=== PATIENT | female | born 1965 | race Caucasian/White ===

== ENCOUNTER 2022-02-25 12:36 | Outpatient (REF) | payer OTHER, SELFPAY ==
[2022-02-25 13:58] LABS: MANUAL DIFF FLAG NO
[2022-02-25 14:10] LABS: Basophils Absolute Auto 0.1 X10*3/uL (0.0-0.2); Basophils Percent Auto 0.9 % (0-2); Eosinophils Absolute Auto 0.5 X10*3/uL (0.0-0.4); Eosinophils Percent Auto 5.6 % (0-4); Hematocrit 40.2 % (37.0-47.0); Hemoglobin 12.5 g/dl (12.0-16.0); Imm Gran Abs Auto 0.03 X10*3/uL (0.00-0.03); Imm Gran Pct Auto 0.3 % (0.0-0.4); Lymphocytes Absolute Auto 3.1 X10*3/uL (1.2-4.9); Lymphocytes Percent Auto 32.8 % (20-40); Mean Corpuscular HGB Conc 31.1 g/dl (31.0-35.0); Mean Corpuscular Hemoglobin 29.9 pg (27.0-33.0); Mean Corpuscular Volume 96.2 fL (80.0-98.0); Mean Platelet Volume 11.6 fL (9.4-12.3); Monocytes Absolute Auto 0.9 X10*3/uL (0.1-1.2); Monocytes Percent Auto 9.2 % (2-11); Neutrophils Absolute Auto 4.8 x10*3/uL (2.0-8.3); Neutrophils Percent Auto 51.2 % (45-73); Platelet Count 257 X10*3/uL (160-400); Red Blood Count 4.18 X10*6/uL (4.20-5.50); Red Cell Distribution Width 13.7 % (11.0-16.0); White Blood Count 9.4 X10*3/uL (4.8-10.8)
[2022-02-25 15:45] LABS: Alanine Aminotransferase 36 U/L (0-31); Albumin Level 3.7 g/dL (3.5-5.0); Alkaline Phosphatase 97 U/L (39-117); Anion Gap 12 (12-20); Aspartate Amino Transferase 46 U/L (5-31); Bilirubin Total 0.5 mg/dL (0.0-1.0); Blood Urea Nitrogen 15 mg/dL (9-16); Calcium 8.9 mg/dL (8.4-10.2); Carbon Dioxide 29 mmol/L (22-29); Chloride 105 mmol/L (96-108); Cholesterol 145 mg/dL; Estimated Glomerular Filt Rate 47; Free T4 (Free Thyroxine) 1.17 ng/dL (0.71-1.85); Glucose Fasting 107 mg/dL (60-99); HDL Cholesterol 32 mg/dL; LDL Cholesterol Calculated 93 mg/dl; Potassium 4.4 mmol/L (3.3-5.1); Sodium 142 mmol/L (135-145); Thyroid Stimulating Hormone 1.77 uIU/mL (0.32-4.0); Total Protein 7.6 g/dL (6.5-8.0); Triglycerides 103 mg/dL
[2022-02-27 07:59] LABS: Triiodothyronine T3 Total 143 ng/dL (76-181)
== END 2022-02-25 12:37 | disposition home or self-care (01) ==
LOC: HO.WFDLDS 12:36
PROVIDERS: Visit Provider Family Medicine
DX: Z00.00 Encounter for general adult medical examination without abnormal findings (principal); E03.9 Hypothyroidism, unspecified
CPT/HCPCS: 36415; 80053; 80061; 84439; 84443; 84480; 85025

== ENCOUNTER 2022-06-02 08:00 | Outpatient (RCR) | payer OTHER, SELFPAY ==
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
--- NOTE | 2022-06-02 09:07 | MHC.PT.OD ---
[facility] [place] Office [place] Office [place] Office [address] Iveth Sheikh [address] [phone] F: [phone] F: [phone] F: [phone] F: [phone] Physical Therapy Daily Note Diagnosis: PAIN IN R SHOULDER Date of Surgery: NA Date of Evaluation: 05/14/22 Date of Treatment: 06/02/22 Treatments to Date: 4 Cancellations to Date: No Shows to Date: Authorized Visits: Insurance End Date: Precautions/ Contraindications:NONE SPECIFIED Subjective: Expresses her shoulder is feeling lousy today. Pain Score and Location: 8 R SHOULDER Objective Flowsheet: Tests & Measures PT EVAL Exercises UBE ELSA SEATED FITO FOR SHLDER FLEX X 5MIN, Supine AAROM flexion with use of cane x 10 sec hold x 5R, AAROM cane scaption in supine x 10 sec x 5R, review of shoulder extension with RTB issued at time of last session. SHOULD BENEFIT FROM ST WORK R SHLDER/UPPER ARM, POSSIBLE KT (Pt WITH EXEMA ON HANDS AND R FOREARM (Pt REPORTS BACK ALSO, BUT REPORTS NO ISSUE WITH TAPE/BANDAIDS) SPOKE WITH [facility] ([facility]) RE Pt. SHE IS TO PUT IN A REFFERRAL TO THE [facility] IN [facility] (GAVE Pt NUMBER TO CALL IF THEY DONT REACH OUT TO HER) Modalities SEATED MH X 10 MIN R SHLDER AFTER FITO Assessment: Pt expressing she was feeling dizzy after rising from supine on mat for shoulder AAROM, assessment BP seated L UE 80/60mmHg, HR 48 bpm, Sp02 96%. Therapist inquired with patient, was scheduled to see Emerald Isreal on 06/04/22. Therapist encouraged patient to be seen in the walk-in office. A repeat blood pressure taken, L UE manually 80/55mmHg, HR fluctuating between 45-54 on pulse ox, Sp02 96%. Pt encouraged to increase her water intake and drank two cups of water in office. Pt states she was asymptomatic after sitting upright for a few minutes. Pt expressing she took all her BP meds this morning. Pt (-) for diaphoresis, chest pain, radiating arm, sx, denies nausea. Pt states she did not eat breakfast this am. Pt agreeable to being seen with walk-in provider/PCP upon completion of this visit. PT Plan: AAROM>AROM R SHLDER, RC/SCAP WORK, ST WORK PRN Short Term Goals: 1. INCREASED AWARENESS POSTURE AND SHLDER CARE 2. IMPROVED SLEEP Grooving Lathe Tender Goals: 1. INCREASED R SHLDER ROM AT LEAST 20 DEGREES FOR SHLDER FLEX/ABD/ER 2. DECREASED R SHLDER PAIN AT LEAST 50% WITH ADLS 3. I HEP WITH DC EX PLAN Electronically signed by: Ruth Clements, PT, DPT
--- NOTE | 2022-06-02 09:10 | MHC.PT.OD ---
[facility] [place] Office [place] Office [place] [address] Iveth Sheikh [address] [phone] F: [phone] F: [phone] F: [phone] F: [phone] Physical Therapy Daily Note Diagnosis: PAIN IN R SHOULDER Date of Surgery: NA Date of Evaluation: 05/14/22 Date of Treatment: 06/02/22 Treatments to Date: 4 Cancellations to Date: No Shows to Date: Authorized Visits: Insurance End Date: Precautions/ Contraindications:NONE SPECIFIED Subjective: Expresses her shoulder is feeling lousy today. Pain Score and Location: 8 R SHOULDER Objective Flowsheet: Tests & Measures PT EVAL Exercises UBE ELSA SEATED FITO FOR SHLDER FLEX X 5MIN, Supine AAROM flexion with use of cane x 10 sec hold x 5R, AAROM cane scaption in supine x 10 sec x 5R, review of shoulder extension with RTB issued at time of last session. SHOULD BENEFIT FROM ST WORK R SHLDER/UPPER ARM, POSSIBLE KT (Pt WITH EXEMA ON HANDS AND R FOREARM (Pt REPORTS BACK ALSO, BUT REPORTS NO ISSUE WITH TAPE/BANDAIDS) Therapist inquired re: follow up with Tonia Paulino number for counselor issued last session; pt states she lost the phone number- therapist consulted with Tonia Paulino community navigation wrapper caser to obtain number and reissued to patient. Modalities SEATED MH X 10 MIN R SHLDER AFTER FITO Assessment: Pt expressing she was feeling dizzy after rising from supine on mat for shoulder AAROM, assessment BP seated L UE 80/60mmHg, HR 48 bpm, Sp02 96%. Therapist inquired with patient, was scheduled to see Emerald Bach on 06/04/22. Therapist encouraged patient to be seen in the walk-in office. A repeat blood pressure taken, L UE manually 80/55mmHg, HR fluctuating between 45-54 on pulse ox, Sp02 96%. Pt encouraged to increase her water intake and drank two cups of water in office. Pt states she was asymptomatic after sitting upright for a few minutes. HR remains low in the mid 40s. Pt expressing she took all her BP meds this morning. Pt (-) for diaphoresis, chest pain, radiating arm, sx, denies nausea. Pt states she did not eat breakfast this am. Pt agreeable to being seen with walk-in provider/PCP upon completion of this visit. PT Plan: AAROM>AROM R SHLDER, RC/SCAP WORK, ST WORK PRN Short Term Goals: 1. INCREASED AWARENESS POSTURE AND SHLDER CARE 2. IMPROVED SLEEP [facility] Goals: 1. INCREASED R SHLDER ROM AT LEAST 20 DEGREES FOR SHLDER FLEX/ABD/ER 2. DECREASED R SHLDER PAIN AT LEAST 50% WITH ADLS 3. I HEP WITH DC EX PLAN Electronically signed by: Ruth Clements, PT, DPT
--- NOTE | 2022-09-12 14:46 | MHC.PT.DC ---
[facility] [place] Office [place] Office [place] Office [address] Iveth Sheikh [address] [phone] F: [phone] F: [phone] F: [phone] F: [phone] Physical Therapy Discharge Report Diagnosis: PAIN IN R SHOULDER Date of Surgery: NA Date of Evaluation: 05/14/22 Date of Discharge: 09/12/22 Treatments to Date: 4 Cancellations to Date: No Shows to Date: Discharge Status: Patient Elected to Stop Discharge Summary: Pt SEEN FOR INIT EVAL AND 3 VISITS. PER ASSESSMENT AT LAST SESSION ON 06/02/22 BY JOSHUA GIMENEZ PT, DPT Pt expressing she was feeling dizzy after rising from supine on mat for shoulder AAROM, assessment BP seated L UE 80/60mmHg, HR 48 bpm, Sp02 96%. Therapist inquired with patient, was scheduled to see Emerald Bach on 06/04/22. Therapist encouraged patient to be seen in the walk-in office. A repeat blood pressure taken, L UE manually 80/55mmHg, HR fluctuating between 45-54 on pulse ox, Sp02 96%. Pt encouraged to increase her water intake and drank two cups of water in office. Pt states she was asymptomatic after sitting upright for a few minutes. HR remains low in the mid 40s. Pt expressing she took all her BP meds this morning. Pt (-) for diaphoresis, chest pain, radiating arm, sx, denies nausea. Pt states she did not eat breakfast this am. Pt agreeable to being seen with walk-in provider/PCP upon completion of this visit. Pt THEN CANCELLED NEXT SESSION Electronically signed by: BART GREENBERG PT Please sign and return to therapist. Thank you for your referral.
== END 2022-09-12 14:47 | disposition home or self-care (01) ==
LOC: HO.PTWFD 08:00
PROVIDERS: PCP Nurse Practitioner Family; Visit Provider Nurse Practitioner Family
DX: M25.511 Pain in right shoulder (principal)
CPT/HCPCS: 97110; 97162; 97535

== ENCOUNTER → 2022-06-20 08:03 | Outpatient (BNVA) | payer OTHER, SELFPAY | PROVIDERS: PCP Nurse Practitioner Family; Visit Provider Internal Medicine Endocrinology, Diabetes & Metabolism | DX: E05.90 Thyrotoxicosis, unspecified without thyrotoxic crisis or storm (principal) | CPT/HCPCS: 99202 ==

== ENCOUNTER 2022-06-20 09:15 | Outpatient (REF) | payer OTHER, SELFPAY ==
[2022-06-20 10:58] LABS: MANUAL DIFF FLAG NO
[2022-06-20 11:07] LABS: Basophils Absolute Auto 0.1 X10*3/uL (0.0-0.2); Basophils Percent Auto 1.2 % (0-2); Eosinophils Absolute Auto 0.5 X10*3/uL (0.0-0.4); Eosinophils Percent Auto 6.6 % (0-4); Hematocrit 37.1 % (37.0-47.0); Hemoglobin 11.5 g/dl (12.0-16.0); Imm Gran Abs Auto 0.02 X10*3/uL (0.00-0.03); Imm Gran Pct Auto 0.2 % (0.0-0.4); Lymphocytes Absolute Auto 2.9 X10*3/uL (1.2-4.9); Lymphocytes Percent Auto 34.9 % (20-40); Mean Corpuscular Volume 96.9 fL (80.0-98.0); Mean Platelet Volume 12.3 fL (9.4-12.3); Monocytes Absolute Auto 0.9 X10*3/uL (0.1-1.2); Monocytes Percent Auto 10.6 % (2-11); Neutrophils Absolute Auto 3.8 x10*3/uL (2.0-8.3); Neutrophils Percent Auto 46.5 % (45-73); Platelet Count 265 X10*3/uL (160-400); Red Blood Count 3.83 X10*6/uL (4.20-5.50); Red Cell Distribution Width 14.6 % (11.0-16.0); White Blood Count 8.2 X10*3/uL (4.8-10.8)
[2022-06-20 11:25] LABS: Alanine Aminotransferase 26 U/L (0-31); Albumin Level 3.4 g/dL (3.5-5.0); Alkaline Phosphatase 105 U/L (39-117); Aspartate Amino Transferase 29 U/L (5-31); Bilirubin Direct 0.2 mg/dL (0.0-0.5); Bilirubin Total 0.4 mg/dL (0.0-1.0); Total Protein 6.8 g/dL (6.5-8.0)
[2022-06-20 11:41] LABS: Free T4 (Free Thyroxine) 0.87 ng/dL (0.71-1.85); Thyroid Stimulating Hormone 9.34 uIU/mL (0.32-4.0)
[2022-06-25 14:53] LABS: Thyrotropin Receptor Antibody <1.00 IU/L (<=2.00)
== END 2022-06-20 09:16 | disposition home or self-care (01) ==
LOC: HO.10HDL 09:15
PROVIDERS: Visit Provider Internal Medicine Endocrinology, Diabetes & Metabolism
DX: E05.90 Thyrotoxicosis, unspecified without thyrotoxic crisis or storm (principal)
CPT/HCPCS: 36415; 80076; 83520; 84439; 84443; 85025

== ENCOUNTER 2022-08-13 12:26 | Outpatient (REF) | payer OTHER, SELFPAY | END 2022-08-13 12:27 | disposition home or self-care (01) | LOC: HO.HOSX 12:26 | PROVIDERS: Visit Provider Physician Assistant | DX: Z13.89 Encounter for screening for other disorder (principal) ==

== ENCOUNTER 2022-09-11 10:04 | Outpatient (AMB) | payer OTHER, SELFPAY ==
[2022-09-11 10:13] VITALS: BP 128/66; PULSE 77; RESP 12; TEMP 36.4; O2SAT 98; BMI 43.0
--- NOTE | 2022-09-11 10:13 | MHC.PC.OV ---
Vital Signs 09/11/22 10:13 Height 5 ft 6 in Weight 266 lb 4 oz BMI 43.0 BP 128/66 Blood Pressure Location Lt brachial Position Sitting Respiration 12 Pulse 77 Pulse Source Pulse Oximeter Temp 97.5 F Temp Source Temporal Artery Scan Pulse Oximetry (%) 98 Oxygen Delivery Method Room Air Intake Visit Reasons: 2 mos R shoulder, hyperthyroidism Intake Note: Patient states that she has been feeling extra tired lately and states he feels like she has to force herself to get up. Patient states that her right shoulder has been hurting a little bit. Patient needs a refill on her Ibuprofen. Legal Administrative Assistant Required: No Accompanied by: Self / Same As Patient Allergies acetaminophen [From Tylenol] Allergy (Mild, Verified 09/11/22 10:32) Hives codeine Allergy (Unknown, Verified 09/11/22 10:32) hives Medication List - Last Reconciled 09/11/22 by Jaime Bach CNP betamethasone valerate 0.1% 1 appl topical BID PRN hydrochlorothiazide 25 mg PO DAILY 30 days ibuprofen 800 mg PO Q12H PRN lisinopril 40 mg PO DAILY 90 days methimazole 5 mg PO DAILY Tobacco use date assessed: 06/04/22 Dental Screening Dental Screen Date: 09/11/22 Did you have a dental visit in the last 12 months?: No Did you have a dental problem in the last 6 months where you did not have access to dental care?: No HPI HPI Comments History of Present Illness Details 57-year-old female presents for hypothyroidism, right shoulder pain, and right leg/knee pain follow-up She notes she has been taking her medications as prescribed She reports chronic fatigue which is worsening. She also reports chronic right shoulder and right knee pain X-ray were ordered for chronic right shoulder and right leg/knee pain on her last visit. She was also referred to Orthopedics She has not gotten x-ray done She has a follow-up appointment with Orthopedics on 09/18/2022 She has not had thyroid function studies done as ordered by endocrinology. She has a follow-up appointment with Endocrinology on 09/15/2022 She notes she had a successful myomectomy last month Patient states that she has been feeling extra tired lately and states he feels like she has to force herself to get up. Patient states that her right shoulder has been hurting a little bit. Patient needs a refill on her Ibuprofen. [facility] Medical History (Updated 09/11/22 @ 10:28 by Marilyn Frazier MA) No pertinent past medical history Surgical History History of back surgery Hx of breast surgery Hx of knee surgery Hx of oral surgery Family History Mother Lung cancer Colon cancer High blood pressure Social History Housing: Apartment Alcohol intake: never Patient Tobacco Use Status: Former Tobacco user Tobacco use type: Cigarette e-Cigarette/Vaping Use: Currently Using service: No Current occupational status: disabled Cognitive needs: No Hearing needs: No Vision needs: Yes Questionnaire Thrive Questionnaire Date Thrive assessed: 04/03/22 RANJIT-7 AMB Questionnaire RANJIT-7 Date RANJIT - 7 assessed: 06/04/22 Source: Developed by Drs. Pan Bunch, Meron Kennedy, Aldair Alston and colleagues, with an educational tamera from [employer]. Review of Systems Const Details: Const Denies chills, Denies fatigue, Denies fever(s), Denies headache(s) and Denies weakness ENT Denies change in vision, Denies dizziness, Denies headache(s), Denies hearing loss, Denies nasal congestion, Denies sinus pain, Denies sinus pressure and Denies sore throat Resp Denies cough, Denies dyspnea, Denies wheezing and Denies other (shortness of breath) Cardio Denies chest pain, Denies lightheadedness, Denies dyspnea and Denies other (palpitations) Neuro Denies dizziness, Denies headache(s), Denies numbness, Denies tingling and Denies weakness Musc Reports as per HPI Psych Denies anxiety, Denies depression, Denies memory?loss Endo Denies fatigue Aller/Immun Denies wheezing Physical exam (Primary Care) Tobacco/Smoking Status: Tobacco use Status Tobacco use date assessed 06/04/22 07/07/22 12:27 Patient Tobacco Use Status Current everyday Tobacco 07/07/22 12:27 Tobacco use type Cigarette 07/07/22 12:27 e-Cigarette/Vaping Use Currently Using 07/07/22 12:27 Thrive Assessment: Date of Thrive Assessment Date Thrive assessed 04/03/22 07/07/22 12:27 Const Other: Const General: well developed; No acute distress Nutritional Appearance: well nourished Orientation/consciousness: patient oriented x3 HEENT Head: Yes normocephalic and Yes atraumatic Eyes General: appearance normal, both eyes and all related structures Pupils: Equal, round and reactive pupils present EOM: EOMs intact bilaterally Resp Effort & Inspection: normal respiratory effort Auscultation: clear to auscultation bilaterally Cardio Rate: regular rate Rhythm: regular rhythm Heart sounds: S1 normal heart sound present, S2 normal heart sound present, no gallops, no murmurs and no rubs Bruits: no abdominal aortic bruits and no carotid bruits Back/Spine/Pelvis Back: no CVA tenderness Cervical Spine: cervical ROM normal and No Cervical spine tenderness Thoracic/Lumbar Spine: thoraco-lumbar ROM normal, No pain with thoraco-lumbar ROM, No thoracic spinal tenderness and No lumbar spinal tenderness Extrem General: Yes normal to inspection, No edema and No calf tenderness Limited range of motion of the right shoulder Neuro General: patient oriented x3 and gait normal, no focal neuro deficit Cranial nerves: Yes Equal, round and reactive pupils present Psych Affect: normal affect Assessment and Plan Assessment & Plan (1) Fatigue: Code(s): R53.83 - Other fatigue Plan: She reports chronic fatigue which is worsening May be related to anemia, thyroid disease, or vitamin deficiency CBC, CMP, and vitamin-D ordered. Encouraged to get blood work done Encouraged to get pending labs, including thyroid function studies blood work done as ordered by endocrinology Follow-up with worsening or new symptoms Verbalized understanding and agreed with treatment plan. (2) Right shoulder pain: Code(s): M25.511 - Pain in right shoulder Qualifiers: Chronicity: chronic Qualified Code(s): M25.511 - Pain in right shoulder; G89.29 - Other chronic pain Plan: She also reports chronic right shoulder and right knee pain Continue to take ibuprofen as prescribed Warm/cool compresses encouraged Encouraged to get pending x-ray done Follow-up with Ortho as scheduled Return with worsening or new symptoms Verbalized understanding and agreed with treatment plan. (3) Right knee pain: Code(s): M25.561 - Pain in right knee Qualifiers: Chronicity: chronic Qualified Code(s): M25.561 - Pain in right knee; G89.29 - Other chronic pain Plan: As above (4) Essential hypertension: Code(s): I10 - Essential (primary) hypertension Plan: Her blood pressure is controlled, 120/66, within goal of less than 140/90 Continue to take lisinopril and hydrochlorothiazide as prescribed Low-sodium diet encouraged Follow-up in 1 month for complete physical exam or return sooner with symptoms or concerns Verbalized understanding and agreed with treatment plan (5) Hyperthyroidism: Code(s): E05.90 - Thyrotoxicosis, unspecified without thyrotoxic crisis or storm Plan: Her recent TSH was elevated, 9.34 and T4 was normal, 0.87.? Tryrotropin receptor antibodies were negative Take methimazole 5 mg daily as prescribed Encouraged to get blood, including thyroid function done per endocrinology Follow-up with endocrinology as planned Return in 1 month for complete physical exam or sooner with symptoms or concerns Verbalized understanding and agreed with treatment plan Orders: Orders Complete Blood Count Auto Diff Today R53.83 - Other fatigue Comprehensive [place]. Panel Fast Today R53.83 - Other fatigue Vitamin D 25-OH Total Today R53.83 - Other fatigue Medications: Refilled ibuprofen 800 mg PO Q12H PRN 30 tabs 2RF fever or pain Coding Level of Care Code Est Pt Level 4 (41881) Diagnoses Fatigue R53.83 Right shoulder pain M25.511; G89.29 Chronicity: chronic Right knee pain M25.561; G89.29 Chronicity: chronic Essential hypertension I10 Hyperthyroidism E05.90 Time Spent (min) 35
== END 2022-09-11 10:49 | disposition home or self-care (01) ==
PROVIDERS: Visit Provider Nurse Practitioner Family
DX: R53.83 Other fatigue (principal); I10 Essential (primary) hypertension; E05.90 Thyrotoxicosis, unspecified without thyrotoxic crisis or storm; M25.511 Pain in right shoulder; G89.29 Other chronic pain; M25.561 Pain in right knee
CPT/HCPCS: 99214

== ENCOUNTER 2022-09-11 11:21 | Outpatient (REF) | payer OTHER, SELFPAY ==
[2022-09-11 13:28] LABS: MANUAL DIFF FLAG NO
[2022-09-11 13:58] LABS: Basophils Absolute Auto 0.1 X10*3/uL (0.0-0.2); Basophils Percent Auto 1.1 % (0-2); Eosinophils Absolute Auto 0.5 X10*3/uL (0.0-0.4); Eosinophils Percent Auto 7.3 % (0-4); Hematocrit 39.3 % (37.0-47.0); Hemoglobin 12.1 g/dl (12.0-16.0); Imm Gran Abs Auto 0.02 X10*3/uL (0.00-0.03); Imm Gran Pct Auto 0.3 % (0.0-0.4); Lymphocytes Absolute Auto 2.7 X10*3/uL (1.2-4.9); Lymphocytes Percent Auto 36.5 % (20-40); Mean Corpuscular HGB Conc 30.8 g/dl (31.0-35.0); Mean Corpuscular Hemoglobin 30.2 pg (27.0-33.0); Mean Platelet Volume 12.6 fL (9.4-12.3); Monocytes Absolute Auto 0.8 X10*3/uL (0.1-1.2); Monocytes Percent Auto 10.4 % (2-11); Neutrophils Absolute Auto 3.3 x10*3/uL (2.0-8.3); Neutrophils Percent Auto 44.4 % (45-73); Platelet Count 205 X10*3/uL (160-400); Red Blood Count 4.01 X10*6/uL (4.20-5.50); Red Cell Distribution Width 13.2 % (11.0-16.0); White Blood Count 7.4 X10*3/uL (4.8-10.8)
[2022-09-11 14:10] LABS: Alanine Aminotransferase 47 U/L (0-31); Albumin Level 3.6 g/dL (3.5-5.0); Alkaline Phosphatase 112 U/L (39-117); Anion Gap 12 (12-20); Aspartate Amino Transferase 48 U/L (5-31); Bilirubin Total 0.5 mg/dL (0.0-1.0); Blood Urea Nitrogen 25 mg/dL (9-16); Calcium 9.9 mg/dL (8.4-10.2); Carbon Dioxide 29 mmol/L (22-29); Chloride 105 mmol/L (96-108); Estimated Glomerular Filt Rate 40; Glucose Fasting 105 mg/dL (60-99); Potassium 3.5 mmol/L (3.3-5.1); Sodium 142 mmol/L (135-145); Total Protein 7.5 g/dL (6.5-8.0)
[2022-09-11 14:24] LABS: Thyroid Stimulating Hormone 4.12 uIU/mL (0.32-4.0)
== END 2022-09-11 11:22 | disposition home or self-care (01) ==
LOC: HO.10HDL 11:21
PROVIDERS: Absent Provider Nurse Practitioner Family; Visit Provider Internal Medicine Endocrinology, Diabetes & Metabolism
DX: E05.90 Thyrotoxicosis, unspecified without thyrotoxic crisis or storm (principal); R53.83 Other fatigue
CPT/HCPCS: 36415; 80053; 84443; 85025

== ENCOUNTER 2022-09-15 08:09 | Outpatient (AMB) | payer OTHER, SELFPAY ==
[2022-09-15 08:11] VITALS: BP 106/68; PULSE 63; BMI 43.5
--- NOTE | 2022-09-15 08:11 | MHC.OFFVIS ---
Intake Vital Signs 09/15/22 08:11 Height 5 ft 6 in Weight 269 lb 6.478 oz BMI 43.5 BP 106/68 Blood Pressure Location Rt brachial Position Sitting Pulse 63 Pulse Source Pulse Oximeter Intake Visit Reasons: Thyrotoxicosis Intake Note: Patient present for Thyrotoxicosis follow up visit. Esl Teacher Required: No Accompanied by: CREDIT PRODUCTS OFFICER Allergies acetaminophen [From Tylenol] Allergy (Mild, Verified 09/15/22 08:14) Hives codeine Allergy (Unknown, Verified 09/15/22 08:14) hives Medication List - Last Reconciled 09/15/22 by Pan Arce MD betamethasone valerate 0.1% 1 appl topical BID PRN hydrochlorothiazide 25 mg PO DAILY 30 days ibuprofen 800 mg PO Q12H PRN lisinopril 40 mg PO DAILY 90 days HPI HPI Comments History of Present Illness Details 57 YO F withwhgermania is seen in consultation for hyperthyroidism at the request of PCP. Was initially diagnosed with hyperthyroidism in 2 yrs ago . She is currently off methimazole . TRAB antibodies are negative and TSH was elevated on 5 mg of methimazole Denies sensation of swelling in the neck or difficulty breathing while lying flat. Denies any tenderness in the neck. Has +palpitations, -tremors, -weight loss, -frequent bowel movements. Denies any ocular complaints,+ blurred and double vision. + hair loss,+ dry skin, -heat but has cold intolerance, +weight gain 100 lbs in 6 yrs , -onfusion. Denies any history of head or neck irradiation. Denies any family history of thyroid cancer. Not Had biopsy of nodules in the past. Family history of thyroid disease:sister and granfather have thyroid problems Recent administration of contrast I:No Use of amiodarone:no Biotin use: No Thyroid US: Labs: [facility] Medical History No pertinent past medical history Surgical History History of back surgery History of surgery Hx of breast surgery Hx of knee surgery Hx of oral surgery Family History Mother Lung cancer Colon cancer High blood pressure Social History Housing: Apartment Alcohol intake: never Patient Tobacco Use Status: Former Tobacco user Tobacco use type: Cigarette e-Cigarette/Vaping Use: Currently Using service: No Current occupational status: disabled Cognitive needs: No Hearing needs: No Vision needs: Yes Physical Exam Vital Signs: BMI result Body Mass Index 43.5 HEENT reveals absence of lid lag , stare or proptosis or eyebrow loss. Thyroid gland is increased in size and measure 25 gms . No nodules or tenderness palpated. There is no cervical adenopathy palpated. Lungs CTA. Heart S1, S2 Reg R/R -M/R/G. Abdominal exam benign. Skin exam reveals absence of dryness or thyroid dermopathy or vitiligo. Nail exam reveals absence of thyroid acropachy or oncholysis. Neurologic exam reveals 2+ reflexes . Muscle Strength is 5/5 proximally. There are no tremors in upper extremities. Assessment & Plan Assessment & Plan (1) Hyperthyroidism: Code(s): E05.90 - Thyrotoxicosis, unspecified without thyrotoxic crisis or storm Plan: This is a 57-year-old female with a history of hyperthyroidism previously diagnosed. She is currently off methimazole Plan is to check thyroid function studies, in 4 weeks. If thyroid function studies remain normal off the methimazole, patient can follow up with primary care provider and return to endocrinology if hyperthyroidism recurs. Orders: Orders Triiodothyronine T3 Free 4 Weeks E05.90 - Thyrotoxicosis, unspecified without thyrotoxic crisis or storm Free T4 (Free Thyroxine) 4 Weeks E05.90 - Thyrotoxicosis, unspecified without thyrotoxic crisis or storm Thyroid Stimulating Hormone 4 Weeks E05.90 - Thyrotoxicosis, unspecified without thyrotoxic crisis or storm Coding Level of Care Code Est Pt Level 3 (13983) Diagnoses Hyperthyroidism E05.90
== END 2022-09-15 08:25 | disposition home or self-care (01) ==
PROVIDERS: PCP Nurse Practitioner Family; Referring Provider Nurse Practitioner Family; Visit Provider Internal Medicine Endocrinology, Diabetes & Metabolism
DX: E05.90 Thyrotoxicosis, unspecified without thyrotoxic crisis or storm (principal)
CPT/HCPCS: 99213

== ENCOUNTER → 2022-09-15 08:09 | Outpatient (BNVA) | payer OTHER, SELFPAY | PROVIDERS: Visit Provider Internal Medicine Endocrinology, Diabetes & Metabolism | DX: E05.90 Thyrotoxicosis, unspecified without thyrotoxic crisis or storm (principal) | CPT/HCPCS: 99212 ==

== ENCOUNTER 2022-09-18 10:08 | Outpatient (AMB) | payer OTHER, SELFPAY ==
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
[2022-09-18 10:28] VITALS: BMI 43.4
== END 2022-09-18 10:54 | disposition home or self-care (01) ==
PROVIDERS: Visit Provider Physician Assistant
DX: M19.011 Primary osteoarthritis, right shoulder (principal); G57.83 Other specified mononeuropathies of bilateral lower limbs
CPT/HCPCS: 99204

== ENCOUNTER 2022-09-18 11:53 | Outpatient (REF) | payer OTHER, SELFPAY ==
--- NOTE | ~2022-09-18 | XR_ITS ---
EXAMINATION: XR SHOULDER, RIGHT CLINICAL INFORMATION: Right shoulder pain unspecified. COMPARISON: None available. TECHNIQUE: Three views of the right shoulder. FINDINGS: Advanced degenerative changes at the glenohumeral joint with loss of the joint space, sclerosis and remodeling at the subjacent articular surfaces and large inferomedial humeral head hypertrophic change. Amorphous soft tissue calcifications lateral to the humeral head. Mild arthritis at the acromioclavicular joint. Degenerative changes on limited views of the thoracic spine. XR/XR shoulder RT min 2V IMPRESSION: Advanced degenerative changes at the glenohumeral joint.
== END 2022-09-18 11:54 | disposition home or self-care (01) ==
LOC: HO.HOSX 11:53
PROVIDERS: Visit Provider Physician Assistant
DX: M19.011 Primary osteoarthritis, right shoulder (principal)
CPT/HCPCS: 73030; 99202

== ENCOUNTER 2022-09-23 13:05 | Outpatient (AMB) | payer OTHER, SELFPAY ==
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
[2022-09-23 13:13] VITALS: BP 136/74; PULSE 84; RESP 16; O2SAT 94; BMI 43.3
== END 2022-09-23 13:47 | disposition home or self-care (01) ==
PROVIDERS: PCP Nurse Practitioner Family; Visit Provider Registered Nurse Emergency
DX: M19.011 Primary osteoarthritis, right shoulder (principal); M25.561 Pain in right knee; G89.29 Other chronic pain; M96.1 Postlaminectomy syndrome, not elsewhere classified
CPT/HCPCS: 99204

== ENCOUNTER → 2022-09-23 13:05 | Outpatient (BNVA) | payer OTHER, SELFPAY | PROVIDERS: PCP Nurse Practitioner Family; Visit Provider Registered Nurse Emergency | DX: M19.011 Primary osteoarthritis, right shoulder (principal); M25.561 Pain in right knee; G89.4 Chronic pain syndrome; M96.1 Postlaminectomy syndrome, not elsewhere classified | CPT/HCPCS: 99202 ==

== ENCOUNTER 2022-10-09 10:43 | Outpatient (AMB) | payer OTHER, SELFPAY ==
[2022-10-09 11:02] VITALS: BP 115/64; PULSE 51; RESP 12; TEMP 36.1; O2SAT 98; BMI 44.1
--- NOTE | 2022-10-09 11:02 | A.OFFPC_ITS ---
Vital Signs 10/09/22 11:02 Height 5 ft 6 in Weight 273 lb BMI 44.1 BP 115/64 Blood Pressure Location Rt brachial Position Sitting Respiration 12 Pulse 51 Pulse Source Pulse Oximeter Temp 97 F Temp Source Temporal Artery Scan Pulse Oximetry (%) 98 Oxygen Delivery Method Room Air Intake Visit Reasons: CPE Intake Note: Patient is interested in getting a script for Nystatin topical powder, she was prescribed it in [place] and would like a new script sent over. Patient states she would like a refill on her hydrochlorothiazide. Hearing Therapy Teacher Required: No Accompanied by: Self / Same As Patient Allergies acetaminophen [From Tylenol] Allergy (Mild, Verified 10/09/22 11:13) Hives Tobacco use date assessed: 06/04/22 Dental Screening Dental Screen Date: 10/09/22 Did you have a dental visit in the last 12 months?: No Did you have a dental problem in the last 6 months where you did not have access to dental care?: No Was dental information given to patient?: Yes HPI HPI Comments History of Present Illness Details 57 y/o female presents for a CPE She has PMH significant for HTN, hyperthyroidism, and chronic right shoulder and right knee pain She is followed by endocrinology, orthopedics, and pain management. She reports continued right shoulder and right knee pain. She also reports itchy rash underneath her breasts and abdominal folds. She request a refill of nystatin powder which she notes is effective. She notes her last colonoscopy was 10 years ago: normal She states her last mammogram was 2 years ago: normal She reports h/o total hysterectomy She states she has not received the syngrex vaccines [facility] Medical History History of high blood pressure No pertinent past medical history Surgical History History of back surgery History of surgery Hx of breast surgery Hx of knee surgery Hx of oral surgery Family History Mother Lung cancer Colon cancer High blood pressure Social History Housing: Apartment Alcohol intake: never Patient Tobacco Use Status: Former Tobacco user Tobacco use type: Cigarette e-Cigarette/Vaping Use: Currently Using service: No Current occupational status: disabled Cognitive needs: No Hearing needs: No Vision needs: Yes Questionnaire Thrive Questionnaire Date Thrive assessed: 04/03/22 RANJIT-7 AMB Questionnaire RANJIT-7 Date RANJIT - 7 assessed: 06/04/22 Source: Developed by Drs. Pan Bunch, Meron Kennedy, Aldair Alston and colleagues, with an educational tamera from [employer]. Review of Systems Const Details: Denies chills, Denies fatigue, Denies fever(s), Denies headache(s) and Denies weakness HEENT Denies change in vision, Denies dizziness, Denies headache(s), Denies hearing loss, Denies nasal congestion, Denies sinus pain, Denies sinus pressure and Denies sore throat Card Denies chest pain, Denies lightheadedness, Denies dyspnea and Denies other (palpitations) Resp Denies cough, Denies dyspnea and Denies wheezing GI Denies abdominal pain, Denies melena, Denies hematochezia, Denies change in bowel habits, Denies dyspepsia and Denies nausea Denies hematuria and Denies dysuria Musc Denies abnormal gait, Denies myalgias, Denies arthralgias, Denies numbness and Denies tingling Skin/Breast Reports rash, Denies unusual bruising and Denies wounds Neuro Reports right shoulder and right knee pain, Denies abnormal gait, Denies dizziness, Denies headache(s), Denies memory loss, Denies numbness, Denies Sensory deficit (Neuro), Denies tingling and Denies weakness Psych Denies anxiety, Denies depression and Denies memory loss Endo Denies cold intolerance, Denies fatigue, Denies heat intolerance, Denies polydipsia and Denies polyuria Armando/Lymph Denies easy bleeding and Denies easy bruising Aller/Immun Denies wheezing Physical exam (Primary Care) Vital Signs: Last Vital Signs Temp 97 F 10/09/22 11:02 Pulse 51 10/09/22 11:02 Resp 12 10/09/22 11:02 BP 115/64 10/09/22 11:02 Pulse Ox 98 10/09/22 11:02 Oxygen Delivery Method Room Air 10/09/22 11:02 BMI result Body Mass Index 44.1 Tobacco/Smoking Status: Tobacco use Status Tobacco use date assessed 06/04/22 10/09/22 11:18 Patient Tobacco Use Status Former Tobacco user 10/09/22 11:18 Tobacco use type Cigarette 10/09/22 11:18 e-Cigarette/Vaping Use Currently Using 10/09/22 11:18 Thrive Assessment: Date of Thrive Assessment Date Thrive assessed 04/03/22 10/09/22 11:18 Const Other: General: no acute distress, well developed, alert and awake Nutritional Appearance: well nourished Orientation/consciousness: patient oriented x3 HENMT Head: Yes normocephalic and Yes atraumatic Ears: hearing grossly normal bilaterally and TM's normal bilaterally General nose exam: Normal external nose present and Normal nares present Mouth: Normal oral and palatal mucosa present and moist mucous membranes Teeth and gingiva: dentition normal Throat: Yes oropharynx normal Eyes Pupils: Equal, round and reactive pupils present and Pupil accommodation reflex normal EOM: EOMs intact bilaterally Neck Neck: Yes normal visual inspection, Yes no lymphadenopathy and Yes trachea midline Thyroid: Thyroid normal Carotids: no bruits Lymphatic: no lymphadenopathy noted Chest Chest palpation & inspection: normal inspection of the chest Resp Effort & Inspection: normal respiratory effort Auscultation: clear to auscultation bilaterally Cardio Rate: regular rate Rhythm: regular rhythm Heart sounds: S1 normal heart sound present, S2 normal heart sound present, no gallops, no murmurs and no rubs Bruits: no abdominal aortic bruits and no carotid bruits GI Palpation (GI): No Abdominal aortic bruit present, Soft to palpation, nontender, No hepatosplenomegaly present and No Rebound tenderness present Auscultation: normal bowel sounds General: Yes no CVA tenderness Back/Spine/Pelvis Back: no CVA tenderness Cervical Spine: cervical ROM normal and No Cervical spine tenderness Thoracic/Lumbar Spine: thoraco-lumbar ROM normal, No pain with thoraco-lumbar ROM, No thoracic spinal tenderness and No lumbar spinal tenderness Skin General: warm and dry. Normal skin color. Normal skin turgor Lesions: no lesions Rashes: Red, moist skin noted underneath the breast and abdominal folds, consistent with candidiasis; red, raised rash with silver patches to both elbows and around the umbilicus, consistent with psoriasis Trauma: no lacerations or abrasions Wounds: no wounds Nails: normal Neuro General: patient oriented x3, gait normal and CN's II-XI intact bilaterally Cranial nerves: Yes Equal, round and reactive pupils present Cognition (Neuro): normal cognition Gait exam (Neuro): Normal gait present Motor exam (neuro): 5/5 motor strength present throughout Sensory Exam: No Sensory deficit (Neuro) Deep tendon reflexes (DTR's): Right patellar reflex intensity grade: 2+ and Left patellar reflex intensity grade: 2+ Extrem General: Yes normal to inspection, No edema and No calf tenderness Limited range of motion to bilateral shoulder Psych Appearance: grossly normal Affect: normal affect Attitude: cooperative Thought process: Normal thought process present Assessment and Plan Assessment & Plan (1) Normal physical examination, routine: Code(s): Z00.00 - Encounter for general adult medical examination without abnormal findings Plan: Significant physical restrictions noted Advised to follow-up in 3 months for hypertension or return sooner with worsening or new symptoms Verbalized understanding and agreed with treatment plan. (2) Right shoulder pain: Code(s): M25.511 - Pain in right shoulder Qualifiers: Chronicity: chronic Qualified Code(s): M25.511 - Pain in right shoulder; G89.29 - Other chronic pain Plan: She reports continued right shoulder and right knee pain She is followed by Orthopedics and Pain Management Continue with current treatment regimen Follow-up with orthopedics and pain management as planned Return with worsening or new symptoms Verbalized understanding and agreed with the treatment plan. (3) Right knee pain: Code(s): M25.561 - Pain in right knee Qualifiers: Chronicity: chronic Qualified Code(s): M25.561 - Pain in right knee; G89.29 - Other chronic pain Plan: As above (4) Hyperthyroidism: Code(s): E05.90 - Thyrotoxicosis, unspecified without thyrotoxic crisis or storm Plan: Current TSH is 4.12, free T4 is normal Followed by endocrinology (5) Psoriasis: Code(s): L40.9 - Psoriasis, unspecified Plan: Red, raised rash with silver patches to both elbows and around the umbilicus, consistent with psoriasis Betamethasone cream as prescribed Referred to dermatology Follow-up with worsening or new signs and symptoms Verbalized understanding and agreed with treatment plan. (6) Candidiasis: Code(s): B37.9 - Candidiasis, unspecified Plan: Red, moist skin noted underneath the breast and abdominal folds, consistent with candidiasis Nystatin powder as prescribed Dermatology referral made Follow-up with worsening or new signs and symptoms Verbalized understanding and agreed with the treatment plan. (7) Essential hypertension: Code(s): I10 - Essential (primary) hypertension Plan: Blood pressure is controlled, 150/64, within goal of less than 140/90 Continue with current antihypertensive regimen Low-sodium diet encouraged Follow-up in 3 months or return sooner with concerns or symptoms Verbalized understanding and agreed with treatment plan. (8) Colon cancer screening: Code(s): Z12.11 - Encounter for screening for malignant neoplasm of colon Plan: She notes her last colonoscopy was 10 years ago: normal GI referral made (9) Vaccine counseling: Code(s): Z71. - Encounter for immunization safety counseling Plan: She states she has not received the syngrex vaccines Instructed on the importance of vaccination and encouraged to get the Shingrix vaccines She notes she will get the vaccines. (10) Breast cancer screening by mammogram: Code(s): Z. - Encounter for screening mammogram for malignant neoplasm of breast Plan: She states her last mammogram was 2 years ago: normal Mammogram referral made Orders: Orders MM screening mammo BI Today Z12. - Encounter for screening mammogram for malignant neoplasm of breast Referrals Gastroenterology Referral Z12.11 - Encounter for screening for malignant neoplasm of colon Dermatology Referral B37.9 - Candidiasis, unspecified, L40.9 - Psoriasis, unspecified Medications: New nystatin 1 appl topical BID 60 grams 3RF B37.9 - Candidiasis, unspecified, L40.9 - Psoriasis, unspecified Coding Level of Care Code Est Pt Prev Care 40-64y(44018) Diagnoses Normal physical examination, routine Z00.00 Right shoulder pain M25.511; G89.29 Chronicity: chronic Right knee pain M25.561; G89.29 Chronicity: chronic Hyperthyroidism E05.90 Psoriasis L40.9 Candidiasis B37.9 Essential hypertension I10 Colon cancer screening Z12. Vaccine counseling Z71. Breast cancer screening by mammogram Z.
== END 2022-10-09 12:09 | disposition home or self-care (01) ==
PROVIDERS: PCP Nurse Practitioner Family; Visit Provider Nurse Practitioner Family
DX: Z00.00 Encounter for general adult medical examination without abnormal findings (principal); E05.90 Thyrotoxicosis, unspecified without thyrotoxic crisis or storm; I10 Essential (primary) hypertension; M25.511 Pain in right shoulder; G89.29 Other chronic pain; M25.561 Pain in right knee; L40.9 Psoriasis, unspecified; B37.9 Candidiasis, unspecified; Z71.85 Encounter for immunization safety counseling
CPT/HCPCS: 99396

== ENCOUNTER 2022-11-11 09:49 | Outpatient (AMB) | payer OTHER, SELFPAY ==
--- NOTE | 2022-11-11 09:55 | A.OFFVIS_ITS ---
Intake Vital Signs 11/11/22 10:04 Height 5 ft 6 in Weight 273 lb BMI 44.1 Intake Visit Reasons: Newprob-Right knee pain Intake Note: Siva is a 57 year old female who presents today for a evaluation for her right knee pain. Patient reports ongoing pain for many years and its been getting worse over time. She states trying many cortisone injections in the past with no relief. Patient reports going to many classes of PT with no relief. Patient states when bending her knee she hears a clicking sound. She also informed me that she uses Ibuprofen when she needs it but she notices that it doesn't help her with the pain. Allergies acetaminophen [From Tylenol] Allergy (Mild, Verified 11/11/22 10:10) Hives HPI Newprob-Right knee pain HPI Details 57-year-old right hand dominant female sriram blanco presents in the office today for an evaluation of right knee pain. The patient reports chronic pain for many years, which has increased over time. She claims to have a clicking sound when bending her right knee. The patient reports use of cortisone injections in the past with no relief. She also reports attending many sessions of physical therapy with no relief. She states she uses OTC ibuprofen, but does not notice any relief in her symptoms. Patient ambulates with a cane. [facility] Medical History History of high blood pressure No pertinent past medical history Surgical History History of back surgery History of surgery Hx of breast surgery Hx of knee surgery Hx of oral surgery Family History Mother Lung cancer Colon cancer High blood pressure Social History Housing: Apartment Alcohol intake: never Patient Tobacco Use Status: Former Tobacco user Tobacco use type: Cigarette e-Cigarette/Vaping Use: Currently Using service: No Current occupational status: disabled Cognitive needs: No Hearing needs: No Vision needs: Yes Review of Systems Const All systems reviewed & are unremarkable except as noted in HPI and below Physical Exam Vital Signs: BMI result Body Mass Index 44.1 Const General: cooperative, healthy appearing and no acute distress Resp Effort & Inspection: normal respiratory effort and able to speak in complete sentences Cardio Rate: regular rate Peripheral pulses: Peripheral pulses 2+ throughout GI Palpation (GI): Soft to palpation Skin Lesions: no lesions Rashes: no rashes Extrem Other: Right knee: Normal to inspection. No ecchymosis, erythema, or joint effusion. No tenderness to palpation to the medial or lateral joint lines. Full knee extension and flexion. Crepitus felt with ROM. Of note: She has a skin abrasion on the lateral aspect of the lower extremity. Granulation tissue is filling in. No active drainage. Assessment & Plan Assessment & Plan (1) Osteoarthritis of right knee: Code(s): M17.11 - Unilateral primary osteoarthritis, right knee Qualifiers: Osteoarthritis type: unspecified Qualified Code(s): M17.11 - Unilateral primary osteoarthritis, right knee Plan Ms. Monet is a 57-year-old right hand dominant female who presents in the office today for an evaluation of right knee pain. The patient reports chronic pain for many years, which has increased over time. She claims to have a clicking sound when bending her right knee. The patient reports use of cortisone injections in the past with no relief. She also reports attending many sessions of physical therapy with no relief. She states she uses OTC ibuprofen, but does not notice any relief in her symptoms. Patient ambulates with a cane. I discussed the role of cortisone and Gel injections with the patient while in the office today. She would like to defer at this time and states she is not interested in any further injections. I discussed the role of Pain Management with the possiblity of nerve blocks. However she is not interested at this time. She was given a reaction knee brace, off the shelf, while in the office today. Follow up will be PRN, or sooner if needed. X-rays of the right knee which were obtained while in the office today and were reviewed by me, Radha Parks PA-C, revealed osteoarthritis. Orders: Orders XR knee standing BI Today M25.569 - Pain in unspecified knee XR knee RT 2V Today M25.569 - Pain in unspecified knee Patient Instructions: Scribed for Radha Pakrs PA-C by Coty Guzman medical officer, on 11/11/2022 at 9:50 am, EST. Coding Level of Care Code Est Pt Level 3 (80472) Diagnoses Osteoarthritis of right knee, unspecified osteoarthritis type M17.11 Osteoarthritis type: unspecified
[2022-11-11 10:04] VITALS: BMI 44.1
== END 2022-11-11 10:33 | disposition home or self-care (01) ==
PROVIDERS: PCP Nurse Practitioner Family; Visit Provider Physician Assistant
DX: M17.11 Unilateral primary osteoarthritis, right knee (principal)
CPT/HCPCS: 99213

== ENCOUNTER 2022-11-11 09:49 | Outpatient (REF) | payer OTHER, SELFPAY ==
--- NOTE | ~2022-11-11 | XR_ITS ---
EXAMINATION: X-ray right knee X-ray bilateral knees CLINICAL INFORMATION: Pain COMPARISON: None TECHNIQUE: AP bilateral knees one view. Right knee 2 views. FINDINGS: Right knee: Severe medial compartment arthritis, marked joint space loss, osteophytes, sclerosis. Moderate lateral and patellofemoral arthritis. No acute fracture or dislocation. Small joint fluid. Left knee: Moderate medial and lateral compartment arthritis, marginal osteophytes, joint space loss. No acute findings seen in the single frontal radiograph. XR/XR knee RT 2V IMPRESSION: Right knee tricompartment osteoarthritis.. Severe medial compartment osteoarthritis.
--- NOTE | ~2022-11-11 | XR_ITS ---
EXAMINATION: X-ray right knee X-ray bilateral knees CLINICAL INFORMATION: Pain COMPARISON: None TECHNIQUE: AP bilateral knees one view. Right knee 2 views. FINDINGS: Right knee: Severe medial compartment arthritis, marked joint space loss, osteophytes, sclerosis. Moderate lateral and patellofemoral arthritis. No acute fracture or dislocation. Small joint fluid. Left knee: Moderate medial and lateral compartment arthritis, marginal osteophytes, joint space loss. No acute findings seen in the single frontal radiograph. XR/XR knee standing BI IMPRESSION: Right knee tricompartment osteoarthritis.. Severe medial compartment osteoarthritis.
== END 2022-11-11 09:50 | disposition home or self-care (01) ==
LOC: HO.HOSX 09:49
PROVIDERS: PCP Nurse Practitioner Family; Visit Provider Physician Assistant
DX: M17.11 Unilateral primary osteoarthritis, right knee (principal)
CPT/HCPCS: 73560; 73565; 99212

== ENCOUNTER 2022-11-27 13:52 | Outpatient (AMB) | payer OTHER, SELFPAY ==
--- NOTE | 2022-11-27 13:59 | A.OFFVIS_ITS ---
Intake Vital Signs 11/27/22 14:03 Height 5 ft 6 in Weight 273 lb BMI 44.1 Intake Visit Reasons: Ov- right shoulder pain Intake Note: Siva 57 yr old female presents today for her Arthritis of right shoulder glenohumeral joint. Patient last seen with Baudilio Parks who referred pt to pain management . States she was given a bone stim. but did not have any relief. States she is still limited ROM. Allergies acetaminophen [From Tylenol] Allergy (Mild, Verified 11/27/22 14:03) Hives HPI Ov- right shoulder pain HPI Details Siva is a 57 year old woman who presents to discuss her right shoulder OA. She also has right knee OA She complains of pain with daily activity, worse with reaching and overhead activity. She says her shoulder occasionally hurts when at rest, and she says this is affecting her ability to sleep. She has been seen by Pain Management for bother her knee & shoulder, and says they were not helpful in reducing her pain. She found no relief from PT in the past and takes Ibuprofen. She says she does not use her shoulder due to being scared of her pain, and her arm now feels weaker. She says she has difficulties with dropping items. She has a hx of lumbar spine surgery for herniated discs, which she says she tolerated well. [facility] Medical History History of high blood pressure No pertinent past medical history Surgical History History of back surgery History of surgery Hx of breast surgery Hx of knee surgery Hx of oral surgery Family History Mother Lung cancer Colon cancer High blood pressure Social History Housing: Apartment Alcohol intake: never Patient Tobacco Use Status: Former Tobacco user Tobacco use type: Cigarette e-Cigarette/Vaping Use: Currently Using service: No Current occupational status: disabled Cognitive needs: No Hearing needs: No Vision needs: Yes Review of Systems Const All systems reviewed & are unremarkable except as noted in HPI and below Physical Exam Vital Signs: BMI result Body Mass Index 44.1 Const General: no acute distress, alert and awake Orientation/consciousness: patient oriented x3 HEENT Head: Yes normocephalic and Yes atraumatic Eyes EOM: EOMs intact bilaterally Resp Effort & Inspection: normal respiratory effort and able to speak in complete sentences Cardio Jugular venous distension: no JVD Skin General skin exam: turgor normal Rashes: no rashes Neuro General: patient oriented x3 Extrem Other: Right Shoulder: 30 deg ER 90/120/s1 Psych Appearance: grossly normal Affect: normal affect Attitude: cooperative Results Reviewed Results Reviewed: I personally reviewed relevant radiographs. Advanced degenerative changes at the right glenohumeral joint. Right knee tricompartment osteoarthritis.. Severe medial compartment osteoarthritis. Assessment & Plan Assessment & Plan (1) Arthritis of right glenohumeral joint: Code(s): M19.011 - Primary osteoarthritis, right shoulder Plan: This is a 57 year old woman with mod-severe right GH OA. She has pain with daily activity, worse with reaching or overhead activity. She also has pain at rest and at night which is affecting her sleep. She found no relief from PT or from stimulators done by Pain Management, and she is hesitant to proceed with steroid injections, with some relief from Ibuprofen. I discussed her diagnosis and tr eatment options. I think she would benefit from a TSA. She is currently deconditioned and I would recommend pre operative PT. I recommend a right TSA.I discussed the risks, benefits, and alternatives including, but not limited to, the risk of pain, infection, stiffness, need for further surgery as well as potential medical complications such as blood clots, pulmonary embolism and cardiac complications. I discussed the recovery timeline and process as well as the importance of PT. Siva is a good candidate for this surgery, and she wishes to proceed with this decision. She will speak with Patricia to schedule this procedure. I ordered PT for yaakov-scapular strengthening, and conditioning. (2) Osteoarthritis of right knee: Code(s): M17.11 - Unilateral primary osteoarthritis, right knee Qualifiers: Osteoarthritis type: unspecified Qualified Code(s): M17.11 - Unilateral primary osteoarthritis, right knee Plan Scribed for Ramon Aiken MD by Enmanuel Chavez medical billing clerk, on 11/27/22 at 2:10 PM, EST. Orders: Orders PT Evaluation and Treatment Today M19.011 - Primary osteoarthritis, right shoulder Coding Level of Care Code Est Pt Level 4 (30262) Diagnoses Arthritis of right glenohumeral joint M19.011 Osteoarthritis of right knee, unspecified osteoarthritis type M17.11 Osteoarthritis type: unspecified
[2022-11-27 14:03] VITALS: BMI 44.1
== END 2022-11-27 14:18 | disposition home or self-care (01) ==
PROVIDERS: PCP Nurse Practitioner Family; Visit Provider Orthopaedic Surgery
DX: M19.011 Primary osteoarthritis, right shoulder (principal); M17.11 Unilateral primary osteoarthritis, right knee
CPT/HCPCS: 99214

== ENCOUNTER → 2022-11-27 13:52 | Outpatient (BNVA) | payer OTHER, SELFPAY | PROVIDERS: PCP Nurse Practitioner Family; Visit Provider Orthopaedic Surgery | DX: M19.011 Primary osteoarthritis, right shoulder (principal); M17.11 Unilateral primary osteoarthritis, right knee | CPT/HCPCS: 99212 ==

== ENCOUNTER 2022-12-12 13:31 | Outpatient (REF) | payer OTHER, SELFPAY ==
--- NOTE | ~2022-12-12 | MM_ITS ---
EXAMINATION: MM DIAGNOSTIC DIGITAL BREAST TOMOSYNTHESIS, BILATERAL CLINICAL INFORMATION: Intertriginous candidiasis. Rash under both breasts with associated breast pain. COMPARISON: Mammography: No prior available at this time. [facility] at [facility] will be obtained, and an addendum will be added to this report, if there is any significant change in the mammogram. TECHNIQUE: Digital breast tomosynthesis is performed in both the craniocaudal and mediolateral oblique views along with computer-aided detection (CAD). Synthesized 2D images are generated from the tomosynthesis. FINDINGS: The breasts are almost entirely fatty (ACR BI-RADS breast composition Category a). There are prominent draining veins in both breasts. There is no skin thickening or evidence of mastitis. There are no suspicious masses, suspicious grouped calcifications, or areas of architectural distortion in either breast. The parenchymal pattern is stable from prior exams. MM/MM tomosynthesis diagnostic BI IMPRESSION: No findings suspicious for malignancy in either breast. No skin thickening or evidence of mastitis in the intertriginous regions. Recommend clinical management of the patient's complaint. ASSESSMENT: BI-RADS BI-RADS 1 - Negative RECOMMENDATION: 1 year F/U Results were provided to the patient at time of visit by the technologist. This patient's information was entered into a reminder system with a target due date for their next mammogram.
== END 2022-12-12 13:32 | disposition home or self-care (01) ==
LOC: HO.MAMMO 13:31
PROVIDERS: Visit Provider Nurse Practitioner Family
DX: N64.4 Mastodynia (principal)
CPT/HCPCS: 77062; 77066

== ENCOUNTER → 2022-12-12 13:45 | Outpatient (BNV) | payer OTHER, SELFPAY | PROVIDERS: Visit Provider Radiology Diagnostic Radiology | DX: R92.313 Mammographic fatty tissue density, bilateral breasts (principal) | CPT/HCPCS: 77062; 77066 ==

== ENCOUNTER 2023-02-12 15:56 | Outpatient (AMB) | payer OTHER, SELFPAY ==
--- NOTE | 2023-02-12 16:03 | A.OFFPC_ITS ---
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 Accompanied by: Self / Same As Patient Allergies acetaminophen [From Tylenol] Allergy (Mild, Verified 02/12/23 16:33) Hives Medication List - Last Reconciled 02/12/23 by Jaime Bach CNP betamethasone valerate 0.1% 1 appl topical BID PRN hydrochlorothiazide 25 mg PO DAILY 30 days ibuprofen 800 mg PO Q12H PRN lisinopril 40 mg PO DAILY 90 days nystatin 1 appl topical BID Tobacco use date assessed: 06/04/22 Dental Screening Dental Screen Date: 02/12/23 Did you have a dental visit in the last 12 months?: No Did you have a dental problem in the last 6 months where you did not have access to dental care?: No Was dental information given to patient?: Patient has dentist HPI HPI Comments History of Present Illness Details 57-year-old female, accompanied by her P CA, presents for hypertension follow-up She admits to taking her medications as prescribed without adverse reactions She reports chronic right shoulder and right knee pain. She is currently getting PT of her right shoulder and is scheduled to have right shoulder surgery at the end of March 2023. She has an appointment in a month for preop clearance for her shoulder surgery [facility] Medical History History of high blood pressure No pertinent past medical history Surgical History History of surgery Hx of oral surgery Hx of knee surgery History of back surgery Hx of breast surgery Family History Mother Lung cancer Colon cancer High blood pressure Social History Housing: Apartment Alcohol intake: never Patient Tobacco Use Status: Former Tobacco user Tobacco use type: Cigarette e-Cigarette/Vaping Use: Currently Using service: No Current occupational status: disabled Cognitive needs: No Hearing needs: No Vision needs: Yes Questionnaire Thrive Questionnaire Date Thrive assessed: 04/03/22 RANJIT-7 AMB Questionnaire RANJIT-7 Date RANJIT - 7 assessed: 06/04/22 Source: Developed by Drs. Pan Bunch, Meron Kennedy, Aldair Alston and colleagues, with an educational tamera from [employer]. Review of Systems Const Details: Const Denies chills, Denies fatigue, Denies fever(s), Denies headache(s) and Denies weakness ENT Denies dizziness and Denies headache(s) Card Denies chest pain, Denies lightheadedness, Denies dyspnea and Denies other (Palpitations) Resp Denies cough, Denies dyspnea, Denies wheezing and Denies other ( shortness of breath) GI Denies abdominal pain, Denies melena, Denies hematochezia, Denies change in bowel habits, Denies dyspepsia and Denies nausea Denies hematuria and Denies dysuria Musc Reports as per HPI Skin/Breast Denies rash, Denies unusual bruising and Denies wounds Neuro Denies abnormal gait, Denies dizziness, Denies headache(s), Denies memory loss, Denies numbness, Denies Sensory deficit (Neuro), Denies tingling and Denies weakness Psych Denies anxiety, Denies depression, Denies memory loss Endo Denies cold intolerance, Denies fatigue, Denies heat intolerance, Denies polydipsia and Denies polyuria Aller/Immun Denies wheezing Physical exam (Primary Care) Vital Signs: Last Vital Signs Temp 96.9 F 02/12/23 16:04 Pulse 87 02/12/23 16:04 Resp 13 02/12/23 16:04 BP 136/76 02/12/23 16:04 Pulse Ox 98 02/12/23 16:04 Oxygen Delivery Method Room Air 02/12/23 16:04 BMI result Body Mass Index 46.3 Tobacco/Smoking Status: Tobacco use Status Tobacco use date assessed 06/04/22 02/12/23 16:12 Patient Tobacco Use Status Former Tobacco user 02/12/23 16:12 Tobacco use type Cigarette 02/12/23 16:12 e-Cigarette/Vaping Use Currently Using 02/12/23 16:12 Thrive Assessment: Date of Thrive Assessment Date Thrive assessed 04/03/22 02/12/23 16:12 Const Other: General: no acute distress and well developed Nutritional Appearance: well nourished Orientation/consciousness: [facility] oriented x3 [facility]: Yes normocephalic and Yes atraumatic Eyes General: appearance normal, both eyes and all related structures Pupils: Equal, round and reactive pupils present EOM: EOMs intact bilaterally Resp Effort & Inspection: normal respiratory effort Auscultation: clear to auscultation bilaterally Cardio Rate: regular rate Rhythm: regular rhythm Heart sounds: S1 normal heart sound present, S2 normal heart sound present, no gallops, no murmurs and no rubs GI Palpation (GI): No Abdominal aortic bruit present, Soft to palpation, nontender, No hepatosplenomegaly present and No Rebound tenderness present Auscultation: normal bowel sounds General: Yes no CVA tenderness Back/Spine/Pelvis Back: no CVA tenderness Cervical Spine: cervical ROM normal and No Cervical spine tenderness Thoracic/Lumbar Spine: thoraco-lumbar ROM normal, No pain with thoraco-lumbar RO M, No thoracic spinal tenderness and No lumbar spinal tenderness Extrem General: Yes normal to inspection, No edema and No calf tenderness Limited ROM of the right shoulder and right knee Skin General: warm and dry. Normal skin color. Normal skin turgor Neuro General: patient oriented x3, gait normal and no focal neuro deficit Cranial nerves: Yes Equal, round and reactive pupils present Cognition (Neuro): normal cognition Gait exam (Neuro): Normal gait present Sensory Exam: No Sensory deficit (Neuro) Psych Appearance: grossly normal Affect: normal affect Attitude: cooperative Thought process: Normal thought process present Assessment and Plan Assessment & Plan (1) Hypotension: Code(s): I95.9 - Hypotension, unspecified Plan: Resting blood pressure is 110/70, within goal of less than 140/90 Continue current treatment regimen Low-sodium diet encouraged Will continue to monitor Follow-up in a month as planned for preop clearance Return with symptoms or concerns Verbalized understanding and agreed with treatment plan (2) Arthritis of right glenohumeral joint: Code(s): M19.011 - Primary osteoarthritis, right shoulder Plan: Limited ROM of the right shoulder and right knee Continue current treatment regimen Continue follow-up with [facility] Ortho as planned Follow-up next week for preop clearance for right shoulder surgery as planned Return sooner with worsening or new symptoms Verbalized understanding and agreed with treatment plan (3) Osteoarthritis of right knee: Code(s): M17.11 - Unilateral primary osteoarthritis, right knee Qualifiers: Osteoarthritis type: unspecified Qualified Code(s): M17.11 - Unilateral primary osteoarthritis, right knee Plan: As above (4) Transaminitis: Code(s): R74.01 - Elevation of levels of liver transaminase levels Plan: Recent fasting glucose and AST/ALT were slightly elevated, 105 and 48/47 respectively. Will check CMP and CBC for elevated fasting glucose and AST/ALT levels and also in preparation for left shoulder surgery. Advised to fast for 10-12 hours, may drink water only, and get blood work done a few days before her next visit (5) Elevated fasting glucose: Code(s): R73.01 - Impaired fasting glucose Plan: As above Orders: Orders Comprehensive [place]. Panel Fast Today R73.01 - Impaired fasting glucose, R74.01 - Elevation of levels of liver transaminase levels Complete Blood Count Auto Diff Today Z01.818 - Encounter for other preprocedural examination Coding Level of Care Code Est Pt Level 3 (12236) Diagnoses Hypotension I95.9 Arthritis of right glenohumeral joint M19.011 Osteoarthritis of right knee, unspecified osteoarthritis type M17.11 Osteoarthritis type: unspecified Transaminitis R74.01 Elevated fasting glucose R73.01
[2023-02-12 16:04] VITALS: BP 136/76; PULSE 87; RESP 13; TEMP 36.1; O2SAT 98; BMI 46.3
[2023-02-12 16:40] VITALS: BP 110/70
== END 2023-02-12 16:59 | disposition home or self-care (01) ==
PROVIDERS: PCP Nurse Practitioner Family; Visit Provider Nurse Practitioner Family
DX: I95.9 Hypotension, unspecified (principal); M19.011 Primary osteoarthritis, right shoulder; M17.11 Unilateral primary osteoarthritis, right knee; R74.01 Elevation of levels of liver transaminase levels; R73.01 Impaired fasting glucose
CPT/HCPCS: 99213

== ENCOUNTER → 2023-02-18 12:54 | Outpatient (BNVA) | payer OTHER, SELFPAY | PROVIDERS: PCP Student in an Organized Health Care Education/Training Program; Visit Provider Orthopaedic Surgery ==

== ENCOUNTER 2023-02-25 13:00 | Outpatient (RCR) | payer OTHER, SELFPAY ==
--- NOTE | 2023-02-04 15:23 | MHC.PT.EP ---
[facility] [place] Office [place] Office [place] Office [address] [facility] [address] [phone] F: [phone] F: [phone] F: [phone] F: [phone] Physical Therapy Plan of Care Date of Evaluation: 02/04/23 Date of Surgery: SCHEDULED Diagnosis: OA R SHOULDER Assessment: Pt IS 57 YO F REFERRED TO PT FROM ORTHO (DR DAVIS) FOR PRE-OP SHOULDER STRENGTHENING FOR TSA R TO BE DONE Mar. Pt HAS BEEN TO PT IN PAST AND HAS NOT DONE WELL WITH COMPLIANCE. PRESENTS WITH POOR SHLDER ROM AND STRENGTH. Pt WITH MULTIPLE OTHER COMPLAINTS (PHYSICAL AND MENTAL). DOES NOT SEEM LIKE A GOOD TSA CANDIDATE. WILL SEE 1X/WK FOR WORK ON ROM/STRENGTHENING AND EDUCATE RE POST OP PLAN IF DOES HAVE SURGERY OF NOTE, SAW ALISON ASCENCIO ON 01/06/23 FOR ASSIST WITH COUNSELOR (KARI BATES IN [facility]) Frequency and Duration: The patient will be seen 1X/WK X 6 WKS Short Term Goals: 1. INCREASED AWARENESS SHLDER CARE 2. INCREASED R SHLDER ROM FLEX AND ABD TO 100 DEGREES, ER TO 10 Penitentiary Goals: 1. DECREASED R SHLDER PAIN AT LEAST 50% WITH ADLS 2. I HEP FOR R SHLDER STRENGTH AND ROM 3. R SHLDER ROM FLEX TO 110, ABD TO 110, ER TO 25 Treatment Plan: Modalities to reduce pain, spasms and effusion. Manual therapy to restore motion and function. Therapeutic exercise to improve strength and flexibility. Neuromuscular re-education for posture and balance. Therapeutic activities to return to functional activities of daily living. Electronically signed by: BART GREENBERG PT Please sign and return to therapist. Thank you for your referral.
== END 2023-03-26 13:19 | disposition home or self-care (01) ==
LOC: HO.PTWFD 13:00
PROVIDERS: PCP Student in an Organized Health Care Education/Training Program; Visit Provider Orthopaedic Surgery
DX: M19.011 Primary osteoarthritis, right shoulder (principal)
CPT/HCPCS: 97110; 97162; 97535

== ENCOUNTER 2023-03-10 10:46 | Outpatient (REF) | payer OTHER, SELFPAY ==
[2023-03-10 13:58] LABS: MANUAL DIFF FLAG NO
[2023-03-10 14:07] LABS: Basophils Absolute Auto 0.1 X10*3/uL (0.0-0.2); Basophils Percent Auto 1.1 % (0-2); Eosinophils Absolute Auto 0.4 X10*3/uL (0.0-0.4); Eosinophils Percent Auto 6.1 % (0-4); Hematocrit 39.7 % (37.0-47.0); Hemoglobin 12.1 g/dl (12.0-16.0); Imm Gran Abs Auto 0.01 X10*3/uL (0.00-0.03); Imm Gran Pct Auto 0.1 % (0.0-0.4); Lymphocytes Percent Auto 55.3 % (20-40); Mean Corpuscular HGB Conc 30.5 g/dl (31.0-35.0); Mean Corpuscular Hemoglobin 29.8 pg (27.0-33.0); Mean Corpuscular Volume 97.8 fL (80.0-98.0); Mean Platelet Volume 12.9 fL (9.4-12.3); Monocytes Absolute Auto 0.6 X10*3/uL (0.1-1.2); Monocytes Percent Auto 7.8 % (2-11); Neutrophils Absolute Auto 2.1 x10*3/uL (2.0-8.3); Neutrophils Percent Auto 29.6 % (45-73); Platelet Count 193 X10*3/uL (160-400); Red Blood Count 4.06 X10*6/uL (4.20-5.50); Red Cell Distribution Width 13.4 % (11.0-16.0); White Blood Count 7.2 X10*3/uL (4.8-10.8)
[2023-03-10 14:16] LABS: Alanine Aminotransferase 42 U/L (0-31); Albumin Level 3.4 g/dL (3.5-5.0); Alkaline Phosphatase 112 U/L (39-117); Anion Gap 13 (12-20); Aspartate Amino Transferase 46 U/L (5-31); Bilirubin Total 0.3 mg/dL (0.0-1.0); Blood Urea Nitrogen 22 mg/dL (9-16); Carbon Dioxide 28 mmol/L (22-29); Chloride 107 mmol/L (96-108); Estimated Glomerular Filt Rate 43; Glucose Fasting 108 mg/dL (60-99); Potassium 3.6 mmol/L (3.3-5.1); Sodium 144 mmol/L (135-145); Total Protein 7.5 g/dL (6.5-8.0)
== END 2023-03-10 10:47 | disposition home or self-care (01) ==
LOC: HO.WFDLDS 10:46
PROVIDERS: Visit Provider Nurse Practitioner Family
DX: Z01.818 Encounter for other preprocedural examination (principal); R74.01 Elevation of levels of liver transaminase levels; R73.01 Impaired fasting glucose
CPT/HCPCS: 36415; 80053; 85025

== ENCOUNTER 2023-03-20 15:43 | Outpatient (AMB) | payer OTHER, SELFPAY ==
[2023-03-20 15:50] VITALS: BP 126/84; PULSE 71; RESP 13; TEMP 36.3; O2SAT 98; BMI 45.3
--- NOTE | 2023-03-20 15:50 | A.OFFPC_ITS ---
Vital Signs 03/20/23 15:50 Height 5 ft 6 in Weight 281 lb BMI 45.3 BP 126/84 Blood Pressure Location Rt brachial Position Sitting Respiration 13 Pulse 71 Pulse Source Pulse Oximeter Temp 97.4 F Temp Source Temporal Artery Scan Pulse Oximetry (%) 98 Oxygen Delivery Method Room Air Intake Visit Reasons: pre op 03/25/22 Group Contract Analyst Required: No Accompanied by: ADMISSIONS OFFICER Allergies acetaminophen [From Tylenol] Allergy (Mild, Verified 03/20/23 16:04) Hives Medication List - Last Reconciled 03/20/23 by Jaime Bach CNP betamethasone valerate 0.1% 1 appl topical BID PRN hydrochlorothiazide 25 mg PO DAILY 90 days ibuprofen 800 mg PO Q12H PRN lisinopril 40 mg PO DAILY 90 days nystatin 1 appl topical BID Tobacco use date assessed: 03/20/23 Dental Screening Dental Screen Date: 03/20/23 Did you have a dental visit in the last 12 months?: No Did you have a dental problem in the last 6 months where you did not have access to dental care?: No Was dental information given to patient?: Patient has dentist HPI HPI Comments History of Present Illness Details 57-year-old female, accompanied by a ADMISSIONS OFFICER , presents for preop follow-up visit She is scheduled to have total right shoulder replacement surgery with Dr. Benjie triplett in 04/01/2023 She reports ongoing right shoulder and right knee d/t arthritis PFS Medical History History of high blood pressure No pertinent past medical history Surgical History History of surgery Hx of oral surgery Hx of knee surgery History of back surgery Hx of breast surgery Family History Mother Lung cancer Colon cancer High blood pressure Social History Housing: Apartment Alcohol intake: never Patient Tobacco Use Status: Former Tobacco user Tobacco use type: Cigarette e-Cigarette/Vaping Use: Currently Using service: No Current occupational status: disabled Cognitive needs: No Hearing needs: No Vision needs: No Questionnaire Thrive Questionnaire Date Thrive assessed: 04/03/22 RANJIT-7 AMB Questionnaire RANJIT-7 Date RANJIT - 7 assessed: 06/04/22 Source: Developed by Drs. Pan Bunch, Meron Kennedy, Aldair Alston and colleagues, with an educational tamera from [employer]. Review of Systems Const Details: Const Denies chills, Denies fatigue, Denies fever(s), Denies headache(s) and Denies weakness ENT Denies dizziness and Denies headache(s) Card Denies chest pain, Denies lightheadedness, Denies dyspnea and Denies other (Palpitations) Resp Denies cough, Denies dyspnea, Denies wheezing and Denies other ( shortness of breath) GI Denies abdominal pain, Denies melena, Denies hematochezia, Denies change in bowel habits, Denies dyspepsia and Denies nausea Denies hematuria and Denies dysuria Musc Denies abnormal gait, Denies myalgias, Denies arthralgias, Denies numbness and Denies tingling Skin/Breast Denies rash, Denies unusual bruising and Denies wounds Neuro Denies abnormal gait, Denies dizziness, Denies headache(s), Denies memory loss, Denies numbness, Denies Sensory deficit (Neuro), Denies tingling and Denies weakness Psych Denies anxiety, Denies depression, Denies memory loss Endo Denies cold intolerance, Denies fatigue, Denies heat intolerance, Denies polydipsia and Denies polyuria Aller/Immun Denies wheezing Physical exam (Primary Care) Vital Signs: Last Vital Signs Temp 97.4 F 03/20/23 15:50 Pulse 71 03/20/23 15:50 Resp 13 03/20/23 15:50 BP 126/84 03/20/23 15:50 Pulse Ox 98 03/20/23 15:50 Oxygen Delivery Method Room Air 03/20/23 15:50 BMI result Body Mass Index 45.3 Tobacco/Smoking Status: Tobacco use Status Tobacco use date assessed 03/20/23 03/20/23 16:03 Patient Tobacco Use Status Former Tobacco user 03/20/23 16:03 Tobacco use type Cigarette 03/20/23 16:03 e-Cigarette/Vaping Use Currently Using 03/20/23 16:03 Thrive Assessment: Date of Thrive Assessment Date Thrive assessed 04/03/22 03/20/23 16:03 Const Other: General: no acute distress and well developed Nutritional Appearance: well nourished Orientation/consciousness: patient oriented x3 [facility] Head: Yes normocephalic and Yes atraumatic Eyes General: appearance normal, both eyes and all related structures Pupils: Equal, round and reactive pupils present EOM: EOMs intact bilaterally Resp Effort & Inspection: normal respiratory effort Auscultation: clear to auscultation bilaterally Cardio Rate: regular rate Rhythm: regular rhythm Heart sounds: S1 normal heart sound present, S2 normal heart sound present, no gallops, no murmurs and no rubs GI Palpation (GI): No Abdominal aortic bruit present, Soft to palpation, nontender, No hepatosplenomegaly present and No Rebound tenderness present Auscultation: normal bowel sounds General: Yes no CVA tenderness Back/Spine/Pelvis Back: no CVA tenderness Cervical Spine: cervical ROM normal and No Cervical spine tenderness Thoracic/Lumbar Spine: thoraco-lumbar ROM normal, No pain with thoraco-lumbar ROM, No thoracic spinal tenderness and No lumbar spinal tenderness Extrem General: Yes normal to inspection, No edema and No calf tenderness Skin General: warm and dry. Normal skin color. Normal skin turgor Neuro General: patient oriented x3, gait normal and no focal neuro deficit Cranial nerves: Yes Equal, round and reactive pupils present Cognition (Neuro): normal cognition Gait exam (Neuro): Normal gait present Sensory Exam: No Sensory deficit (Neuro) Psych Appearance: grossly normal Affect: normal affect Attitude: cooperative Thought process: Normal thought process present Results AMB Hemoglobin A1c AMB Hemoglobin A1c 5.7 % Last Edit by Marilyn Frazier MA on 03/20/23 16:46 Results Reviewed Results Reviewed: Laboratory Last Values Hgb A1c (Clinic) 5.7 % (4.0-6.0) 03/20/23 16:30 Assessment and Plan Assessment & Plan (1) Preoperative examination: Code(s): Z01.818 - Encounter for other preprocedural examination Plan: She is scheduled to have total right shoulder replacement surgery with Dr. Aiken in 04/01/2023 Reports consistent right shoulder and right knee pain Physical exam is benign except for Limited ROM of the right shoulder and knee She is hemodynamically stable at this time Continue current treatment regimen No current contraindication for right shoulder surgery Verbalized understanding and agreed with the plan (2) Transaminitis: Code(s): R74.01 - Elevation of levels of liver transaminase levels Plan: Repeat AST and ALT are elevated, 46 and 42 respectively Likely hepatic steatosis Will check liver ultrasound (3) Prediabetes: Code(s): R73.03 - Prediabetes Plan: Fasting glucose have been elevated twice recently. Recent fasting glucose is 108 A1c today is 5.7% Healthy diet and routine exercise encouraged Advised to limit high carbs foods such as rice, bread, pasta, and potatoes Will continue to monitor Verbalized understanding and agreed with treatment plan Orders: Orders US abdomen limited Today R74.01 - Elevation of levels of liver transaminase levels AMB Hemoglobin A1c Today R73.03 - Prediabetes Coding Level of Care Code Est Pt Level 4 (64813) Diagnoses Preoperative examination Z01.818 Transaminitis R74.01 Prediabetes R73.03
== END 2023-03-20 16:31 | disposition home or self-care (01) ==
PROVIDERS: PCP Nurse Practitioner Family; Visit Provider Nurse Practitioner Family
DX: R74.01 Elevation of levels of liver transaminase levels (principal); R73.03 Prediabetes; Z01.818 Encounter for other preprocedural examination
CPT/HCPCS: 83036; 99214

== ENCOUNTER 2023-03-26 12:50 | Outpatient (AMB) | payer OTHER, SELFPAY ==
--- NOTE | 2023-03-26 12:53 | A.OFFVIS_ITS ---
Intake Vital Signs 03/26/23 13:04 Height 5 ft 6 in Weight 281 lb BMI 45.3 Intake Visit Reasons: Discuss TSA Intake Note: Siva is a 57 year old left hand dominant female who presents today for a follow up of her right shoulder to discuss Right TSA. Physical therapy has reached out in regards to their concerns of poor post operative outcome due to lack of compliance. Allergies acetaminophen [From Tylenol] Allergy (Mild, Verified 03/20/23 16:04) Hives HPI Discuss TSA HPI Details Siva is a 57 year old woman who presents to discuss her right shoulder OA. She complains of pain with daily activity, worse with reaching and overhead activity. She says her shoulder occasionally hurts when at rest, and she says this is affecting her ability to sleep. She has been seen by Pain Management for bother her knee & shoulder, and says they were not helpful in reducing her pain. She found no relief from PT in the past and takes Ibuprofen. PT has reached out and reports her having poor compliance with instruction, and are concerned about her possible post-op outcome. She has a hx of lumbar spine surgery for herniated discs, which she says she tolerated well [facility] Medical History History of high blood pressure No pertinent past medical history Surgical History History of surgery Hx of oral surgery Hx of knee surgery History of back surgery Hx of breast surgery Family History Mother Lung cancer Colon cancer High blood pressure Social History Housing: Apartment Alcohol intake: never Patient Tobacco Use Status: Former Tobacco user Tobacco use type: Cigarette e-Cigarette/Vaping Use: Currently Using service: No Current occupational status: disabled Cognitive needs: No Hearing needs: No Vision needs: No Review of Systems Const All systems reviewed & are unremarkable except as noted in HPI and below Physical Exam Vital Signs: BMI result Body Mass Index 45.3 Const General: no acute distress, alert and awake Orientation/consciousness: patient oriented x3 HEENT Head: Yes normocephalic and Yes atraumatic Eyes EOM: EOMs intact bilaterally Resp Effort & Inspection: normal respiratory effort and able to speak in complete sentences Cardio Jugular venous distension: no JVD Skin General skin exam: turgor normal Rashes: no rashes Neuro General: patient oriented x3 Extrem Other: 25 deg ER 80 deg abd Psych Appearance: grossly normal Affect: normal affect Attitude: cooperative Assessment & Plan Assessment & Plan (1) Arthritis of right glenohumeral joint: Code(s): M19.011 - Primary osteoarthritis, right shoulder Plan: Right shoulder OA Siva has not completed PT and I think, given her age and medical comorbidities, that we should postpone surgery indefinitely. I discussed this with her. I recommend she go back to PT and focus on scapular stabilization and strengthening in the safe zone. Avoid ER > 10 deg and overhead activity. I recommend an injection but she refuses all needles. Plan Prepared for Ramon Aiken MD by Enmanuel Chavez, medical underwriter, on 03/26/23 at 1:12 PM, EST. Coding Level of Care Code Est Pt Level 4 (36524) Diagnoses Arthritis of right glenohumeral joint M19.011
[2023-03-26 13:04] VITALS: BMI 45.3
== END 2023-03-26 13:44 | disposition home or self-care (01) ==
PROVIDERS: PCP Nurse Practitioner Family; Visit Provider Orthopaedic Surgery
DX: M19.011 Primary osteoarthritis, right shoulder (principal)
CPT/HCPCS: 99213

== ENCOUNTER → 2023-03-26 12:50 | Outpatient (BNVA) | payer OTHER, SELFPAY | PROVIDERS: PCP Nurse Practitioner Family; Visit Provider Orthopaedic Surgery | DX: M19.011 Primary osteoarthritis, right shoulder (principal) | CPT/HCPCS: 99212 ==

== ENCOUNTER 2023-04-27 10:00 | Outpatient (REF) | payer OTHER, SELFPAY ==
--- NOTE | ~2023-04-27 | US_ITS ---
EXAMINATION: US ABDOMEN LIMITED CLINICAL INFORMATION: Elevation of levels of liver transaminase levels. COMPARISON: None available. TECHNIQUE: Real-time imaging of the right upper quadrant abdominal viscera. Severely limited visualization due to bowel gas. FINDINGS: PANCREAS: Limited visualization of pancreatic tail and head. Imaged portion of pancreatic body is unremarkable. LIVER: Increased hepatic parenchymal heterogeneity and echogenicity could be associated with hepatocellular disease/hepatic steatosis and severely limits visualization. Correlation with liver function tests and clinical exam recommended to determine further management. GALLBLADDER: Multiple gallstones, largest measured 1.2 x 0.4 x 1.2 cm. Echogenic bile in the gallbladder. Abnormal thickening and ring-down artifact along the gallbladder wall raise the possibility of adenomyomatosis, although evaluation is substantially limited due to limited visualization. COMMON BILE DUCT: Not visualized. RIGHT KIDNEY: A 1.9 cm upper pole cyst with echogenic linear structure within the cyst, difficult to characterize due to severely limited visualization. No hydronephrosis. No renal calculi. Limited visualization. The kidney measures 11.1 cm in maximum dimension. There is no indication for follow up imaging, allowing for limited visualization. FREE FLUID: None. US/US abdomen limited IMPRESSION: 1. Cholelithiasis with echogenic bile in the gallbladder. Abnormal thickening and ring-down artifact along the gallbladder wall raises the possibility of adenomyomatosis, although evaluation is substantially limited due to limited visualization. Common bile duct not visualized. 2. A 1.9 cm upper pole cyst with echogenic linear structure within the cyst, difficult to characterize due to severely limited visualization. 3. Increased hepatic parenchymal heterogeneity and echogenicity could be associated with hepatocellular disease/hepatic steatosis and severely limits visualization. Correlation with liver function tests and clinical exam recommended to determine further management. CT scan with images both prior to and following intravenous contrast administration recommended.
== END 2023-04-27 10:01 | disposition home or self-care (01) ==
LOC: HO.US 10:00
PROVIDERS: PCP Nurse Practitioner Family; Visit Provider Nurse Practitioner Family
DX: R74.01 Elevation of levels of liver transaminase levels (principal)
CPT/HCPCS: 76705

== ENCOUNTER 2023-06-05 13:18 | Outpatient (REF) | payer OTHER, SELFPAY ==
--- NOTE | ~2023-06-05 | CT_ITS ---
EXAMINATION: CT SHOULDER WITHOUT CONTRAST, RIGHT CLINICAL INFORMATION: Osteoarthritis. Preoperative evaluation. COMPARISON: Right shoulder radiographs dated 09/18/2022. TECHNIQUE: Contiguous axial CT images of the right shoulder were obtained without contrast. Multiplanar reformats were provided and reviewed. This CT examination was performed using dose optimization techniques as appropriate, variously including the following: *Automated exposure control *Adjustment of mA and/or kV according to patient size (this includes techniques or standardized protocols for targeted exams where dose is matched to indication/reason for exam; i.e. extremities or head) *Use of iterative reconstruction technique DLP: 348 mGy-cm FINDINGS: Visualized right lung: Unremarkable. Bone/joint: Severe glenohumeral joint space narrowing with bony remodeling and subchondral sclerosis. Prominent marginal osteophytes. No acute fracture or dislocation. Mild acromial clavicular joint space narrowing with small marginal osteophytes. Partially visualized facet arthropathy within the cervical spine. No concerning lytic or blastic osseous lesion. Glenoid version: No significant glenoid retroversion. Estimated depth of the glenoid vault: Approximately 2 cm. Glenoid morphology: Walch Type a 2 Joint fluid/bursa/soft tissues: No large joint effusion. Attenuation of the supraspinatus and infraspinatus tendons, which could indicate partial tearing. Evaluation significantly limited on CT examination. No soft tissue mass or fluid collection. No axillary lymphadenopathy. CT/CT shoulder RT wo IV con IMPRESSION: 1. Severe glenohumeral osteoarthritis with bony remodeling. No significant glenoid retroversion. 2. Mild acromioclavicular osteoarthritis. 3. Attenuation of the supraspinatus and infraspinatus tendons, which could indicate partial tearing. Evaluation significantly limited on CT examination.
== END 2023-06-05 13:19 | disposition home or self-care (01) ==
LOC: HO.CT 13:18
PROVIDERS: PCP Nurse Practitioner Family; Visit Provider Orthopaedic Surgery
DX: M19.011 Primary osteoarthritis, right shoulder (principal)
CPT/HCPCS: 73200

== ENCOUNTER 2023-06-19 15:54 | Outpatient (AMB) | payer OTHER, SELFPAY ==
--- NOTE | 2023-06-19 16:00 | MHC.PC.OV ---
Vital Signs 06/19/23 16:01 Height 5 ft 6 in Weight 280 lb BMI 45.2 BP 134/70 Blood Pressure Location Rt brachial Position Sitting Respiration 13 Pulse 92 Pulse Source Pulse Oximeter Temp 97.9 F Temp Source Temporal Artery Scan Pulse Oximetry (%) 99 Oxygen Delivery Method Room Air Intake Visit Reasons: 3 months HTN [employer] Manager Required: No Accompanied by: BIT SANDER Allergies acetaminophen [From Tylenol] Allergy (Mild, Verified 06/19/23 16:06) Hives Tobacco use date assessed: 03/20/23 Dental Screening Dental Screen Date: 03/20/23 Did you have a dental visit in the last 12 months?: No Did you have a dental problem in the last 6 months where you did not have access to dental care?: No Was dental information given to patient?: Patient declined HPI HPI Comments History of Present Illness Details 58-year-old female presents for hypertension follow-up She admits to taking hydrochlorothiazide and lisinopril as prescribed without adverse reactions She admits to maintaining low-sodium diet She offers no complaints and denies acute symptoms at this time [facility] Medical History History of high blood pressure No pertinent past medical history Surgical History History of surgery Hx of oral surgery Hx of knee surgery History of back surgery Hx of breast surgery Family History Mother Lung cancer Colon cancer High blood pressure Social History Housing: Apartment Alcohol intake: never Patient Tobacco Use Status: Former Tobacco user Tobacco use type: Cigarette e-Cigarette/Vaping Use: Currently Using service: No Current occupational status: disabled Cognitive needs: No Hearing needs: No Vision needs: Yes Questionnaire Thrive Questionnaire Date Thrive assessed: 04/03/22 RANJIT-7 AMB Questionnaire RANJIT-7 Date RANJIT - 7 assessed: 06/04/22 Source: Developed by Drs. Pan Bunch, Meron Kennedy, Aldiar Alston and colleagues, with an educational tamera from [employer]. Review of Systems Const Details: Const Denies chills, Denies fatigue, Denies fever(s), Denies headache(s) and Denies weakness ENT Denies dizziness and Denies headache(s) Card Denies chest pain, Denies lightheadedness, Denies dyspnea and Denies other (Palpitations) Resp Denies cough, Denies dyspnea, Denies wheezing and Denies other ( shortness of breath) GI Denies abdominal pain, Denies melena, Denies hematochezia, Denies change in bowel habits, Denies dyspepsia and Denies nausea Denies hematuria and Denies dysuria Musc Denies abnormal gait, Denies numbness and Denies tingling Skin/Breast Denies rash, Denies unusual bruising and Denies wounds Neuro Denies abnormal gait, Denies dizziness, Denies headache(s), Denies memory loss, Denies numbness, Denies Sensory deficit (Neuro), Denies tingling and Denies weakness Psych Denies anxiety, Denies depression, Denies memory loss Endo Denies cold intolerance, Denies fatigue, Denies heat intolerance, Denies polydipsia and Denies polyuria Aller/Immun Denies wheezing Physical exam (Primary Care) Vital Signs: Last Vital Signs Temp 97.9 F 06/19/23 16:01 Pulse 92 06/19/23 16:01 Resp 13 06/19/23 16:01 BP 134/70 06/19/23 16:01 Pulse Ox 99 06/19/23 16:01 Oxygen Delivery Method Room Air 06/19/23 16:01 BMI result Body Mass Index 45.2 Tobacco/Smoking Status: Tobacco use Status Tobacco use date assessed 03/20/23 06/19/23 16:09 Patient Tobacco Use Status Former Tobacco user 06/19/23 16:09 Tobacco use type Cigarette 06/19/23 16:09 e-Cigarette/Vaping Use Currently Using 06/19/23 16:09 Thrive Assessment: Date of Thrive Assessment Date Thrive assessed 04/03/22 06/19/23 16:09 Const Other: General: no acute distress and well developed Nutritional Appearance: well nourished Orientation/consciousness: patient oriented x3 HENMT Head: Yes normocephalic and Yes atraumatic Eyes General: appearance normal, both eyes and all related structures Pupils: Equal, round and reactive pupils present EOM: EOMs intact bilaterally Resp Effort & Inspection: normal respiratory effort Auscultation: clear to auscultation bilaterally Cardio Rate: regular rate Rhythm: regular rhythm Heart sounds: S1 normal heart sound present, S2 normal heart sound present, no gallops, no murmurs and no rubs GI Palpation (GI): No Abdominal aortic bruit present, Soft to palpation, nontender, No hepatosplenomegaly present and No Rebound tenderness present Auscultation: normal bowel sounds General: Yes no CVA tenderness Back/Spine/Pelvis Back: no CVA tenderness Cervical Spine: cervical ROM normal and No Cervical spine tenderness Thoracic/Lumbar Spine: thoraco-lumbar ROM normal, No pain with thoraco-lumbar ROM, No thoracic spinal tenderness and No lumbar spinal tenderness Extrem General: Yes normal to inspection, No edema and No calf tenderness Skin General: warm and dry. Normal skin color. Normal skin turgor Neuro General: patient oriented x3, gait normal and no focal neuro deficit Cranial nerves: Yes Equal, round and reactive pupils present Cognition (Neuro): normal cognition Gait exam (Neuro): Normal gait present Sensory Exam: No Sensory deficit (Neuro) Psych Appearance: grossly normal Affect: normal affect Attitude: cooperative Thought process: Normal thought process present Assessment and Plan Assessment & Plan (1) Essential hypertension: Code(s): I10 - Essential (primary) hypertension Plan: Blood pressure is 134/70, within goal of less than 140/90 Continue current treatment regimen Low-sodium diet encouraged Follow-up in 3 months or return sooner with symptoms or concerns Verbalized understanding and agreed with treatment plan Coding Level of Care Code Tele Est Pt Level 3 (52407) Diagnoses Essential hypertension I10
[2023-06-19 16:01] VITALS: BP 134/70; PULSE 92; RESP 13; TEMP 36.6; O2SAT 99; BMI 45.2
== END 2023-06-19 16:42 | disposition home or self-care (01) ==
PROVIDERS: PCP Nurse Practitioner Family; Visit Provider Nurse Practitioner Family
DX: I10 Essential (primary) hypertension (principal)
CPT/HCPCS: 99213

== ENCOUNTER 2023-06-22 10:18 | Outpatient (REF) | payer OTHER, SELFPAY ==
[2023-06-22 12:43] LABS: Alanine Aminotransferase 51 U/L (0-31); Albumin Level 3.5 g/dL (3.5-5.0); Alkaline Phosphatase 97 U/L (39-117); Aspartate Amino Transferase 48 U/L (5-31); Bilirubin Direct 0.2 mg/dL (0.0-0.5); Bilirubin Total 0.4 mg/dL (0.0-1.0); Total Protein 7.7 g/dL (6.5-8.0)
[2023-06-22 12:49] LABS: Free T4 (Free Thyroxine) 0.96 ng/dL (0.71-1.85); Vitamin D 25-OH Total 14.2 ng/mL (>30)
[2023-06-23 09:19] LABS: Triiodothyronine T3 Free 3.1 pg/mL (2.3-4.2)
== END 2023-06-22 10:19 | disposition home or self-care (01) ==
LOC: HO.WFDLDS 10:18
PROVIDERS: Referring Provider Internal Medicine Endocrinology, Diabetes & Metabolism; Visit Provider Nurse Practitioner Family
DX: E05.90 Thyrotoxicosis, unspecified without thyrotoxic crisis or storm (principal); R53.83 Other fatigue
CPT/HCPCS: 36415; 80076; 82306; 84439; 84443; 84481

== ENCOUNTER 2023-06-25 14:00 | Outpatient (RCR) | payer OTHER, SELFPAY ==
--- NOTE | 2023-05-08 16:25 | MHC.PT.EP ---
[facility] Vendor Office [place] Office [place] Office [address] Iveth Sheikh [address] [phone] F: [phone] F: [phone] F: [phone] F: [phone] Physical Therapy Plan of Care Date of Evaluation: 05/08/23 Date of Surgery: N/A Diagnosis: primary osteoarthritis of right shoulder (RL) Assessment: pt is a 57 y/o female presenting to physical therapy w/ referring diagnosis of primary osteoarthritis of right shoulder. pt does have severe OA of the R shoulder; however, she does have some signs and symptoms consistent w/ cervical radiculopathy. Will continue to monitor and treat or refer as appropriate. Impairments include pain, decreased range of motion, decreased strength, impaired functional mobility, impaired postural awareness, and altered ambulation mechanics. pt is a fair candidate for skilled PT due to age, potential remediation of impairments, typical disease/condition progression and prognosis, comorbidities, and motivation. pt would benefit from skilled PT intervention to provide a tailored strengthening and stretching exercise program, functional training, gait training, postural re-training, neuromuscular re-education, modalities as needed for pain, equipment safety demonstration. Frequency and Duration: The patient will be seen 2x/wk for 6 wks Short Term Goals: pt will be I w/ HEP to promote self-management of condition. pt will improve R shoulder flexion by 10 degrees to promote ease in overhead reaching. Manager Imaging Goals: pt will report a statistically significant improvement in self-reported outcome measure, SPADI, to promote return to PLOF. pt will improve R shoulder strength to at least 4+/5 in all planes to promote ease in lifting objects such as groceries. Treatment Plan: Modalities to reduce pain, spasms and effusion. Manual therapy to restore motion and function. Therapeutic exercise to improve strength and flexibility. Neuromuscular re-education for posture and balance. Therapeutic activities to return to functional activities of daily living. Electronically signed by: Ursula Rodrigez PT, DPT Please sign and return to therapist. Thank you for your referral.
--- NOTE | 2023-07-03 10:34 | MHC.PT.DC ---
[facility] [place] Office [address] Iveth Sheikh [address] [facility] [phone] F: [phone] F: [phone] F: [phone] F: [phone] Physical Therapy Discharge Report Diagnosis: primary osteoarthritis of right shoulder (RL) Date of Surgery: N/A Date of Evaluation: 05/08/23 Date of Discharge: 07/03/23 Treatments to Date: 8 Cancellations to Date: 6 No Shows to Date: 0 Discharge Status: Recommend MD Follow-up Discharge Summary: The patient overall has not made any changes in her shoulder pain since starting PT. She continues to report high levels of pain and describing her situation at miserable. Her CT scan shows significant arthritis at the glenoid which I do not anticipate would be eased with PT intervention. She follows up with the orthopedic surgeon on 07/02/23. She is discharged from this physical therapy plan of care. Electronically signed by: Ursula Rodrigez PT, DPT Please sign and return to therapist. Thank you for your referral.
== END 2023-07-03 10:34 | disposition home or self-care (01) ==
LOC: HO.PT 14:00
PROVIDERS: PCP Nurse Practitioner Family; Visit Provider Orthopaedic Surgery
DX: M19.011 Primary osteoarthritis, right shoulder (principal)
CPT/HCPCS: 97035; 97110; 97140; 97162

== ENCOUNTER 2023-07-02 14:08 | Outpatient (AMB) | payer OTHER, SELFPAY ==
--- NOTE | 2023-07-02 14:27 | A.OFFVIS_ITS ---
Vital Signs 07/02/23 14:50 Height 5 ft 6 in Weight 280 lb BMI 45.2 Intake Visit Reasons: OV - Bilateral Knee Pain Intake Note: Siva is a 57 year old left hand dominant female who presents today for a follow up for her bilateral knee pain, at her last visit it was discuss that surgery should be postponed. Injection was recommended but patient declined. Allergies acetaminophen [From Tylenol] Allergy (Mild, Verified 07/02/23 14:49) Hives HPI HPI OV - Bilateral Knee Pain: Details: 58-year-old left hand dominant female who presents in the office today for a follow up of bilateral knee pain. I last saw the patient for right knee pain on 11/11/2022 when we discussed the role of injection and a referral to Pain Management. She was not interested in proceeding at the time. It was discussed that surgical intervention was not recommended at that time. She was given a reaction knee brace. Patient states she is unable to ambulate without the brace. She states the right is worse than the left. 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 Patient states she has pain in the right shoulder and is unable to sleep. She states she does not want injections because they do not fix the [id number] issues in her shoulder. BMI in the office today, 07/02/2023, 45.2. [facility] Medical History History of high blood pressure No pertinent past medical history Surgical History History of surgery Hx of oral surgery Hx of knee surgery History of back surgery Hx of breast surgery Family History Mother Lung cancer Colon cancer High blood pressure Social History Housing: Apartment Alcohol intake: never Patient Tobacco Use Status: Former Tobacco user Tobacco use type: Cigarette e-Cigarette/Vaping Use: Currently Using service: No Current occupational status: disabled Cognitive needs: No Hearing needs: No Vision needs: Yes Review of Systems Const All systems reviewed & are unremarkable except as noted in HPI and below Physical Exam Vital Signs: BMI result Body Mass Index 45.2 Const General: cooperative, healthy appearing and no acute distress Resp Effort & Inspection: normal respiratory effort and able to speak in complete sentences Cardio Rate: regular rate Peripheral pulses: Peripheral pulses 2+ throughout GI Palpation (GI): Soft to palpation Skin Lesions: no lesions Rashes: no rashes Extrem Other: Bilateral knees: Normal to inspection. No ecchymosis, erythema, or joint effusion. No tenderness to palpation along the medial or lateral joint lines. Full knee extension and flexion. Crepitus felt with ROM. NVI. Assessment & Plan Assessment & Plan (1) Osteoarthritis of right knee: Code(s): M17.11 - Unilateral primary osteoarthritis, right knee Category: Medical Qualifiers: Osteoarthritis type: unspecified Qualified Code(s): M17.11 - Unilateral primary osteoarthritis, right knee (2) Osteoarthritis of left knee: Code(s): M17.12 - Unilateral primary osteoarthritis, left knee Category: Medical Qualifiers: Osteoarthritis type: unspecified Qualified Code(s): M17.12 - Unilateral primary osteoarthritis, left knee (3) Obesity: Comment: 45.2 as of 07/02/2023. Code(s): E66.9 - Obesity, unspecified Category: Medical Qualifiers: Body mass index: BMI 45.0-49.9 Obesity classification: adult class 3 (BMI >= 40) Obesity type: unspecified obesity type Serious obesity comorbidity presence: unspecified whether serious comorbidity present Qualified Code(s): E66.01 - Morbid (severe) obesity due to excess calories; Z68.42 - Body mass index [BMI] 45.0-49.9, adult Plan Ms. Monet is a 58-year-old left hand dominant female who presents in the office today for a follow up of bilateral knee pain. I last saw the patient for right knee pain on 11/11/2022 when we discussed the role of injection and a referral to Pain Mangement. She was not interested in proceeding at the time. It was discussed that surgical intervention was not recommended at that time. She was given a reaction knee brace. Patient states she is unable to ambulate without the brace. She states the right is worse than the left. 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 Patient states she has pain in the right shoulder and is unable to sleep. She states she does not want injections because they do not fix the [id number]-[id number] issues in her shoulder. BMI in the office today, 07/02/2023, 45.2. Discussed with the patient that for her to proceed with surgical intervention, she will need to work on weight loss. We discussed her BMI goal of 40. She will need to lose roughly 30 pounds to get to a weight of 250 pounds. She states she would like to work on her weight loss on her own and has declined a referral to the weight loss clinic. The patient was given 2 playmaker knee braces, off the shelf, for her bilateral knees. Follow up will be PRN, or sooner if needed. X-rays of the bilateral knees which were obtained while in the office today and were reviewed by me, Radha Parks PA-C, revealed no acute fracture or dislocation. Osteoarthritis noted on x-rays. Orders: Orders XR knee LT 2V Today M25.569 - Pain in unspecified knee Patient Instructions: Scribed by Coty Guzman medical detail representative, for Radha Parks PA-C on 07/02/2023 at 2:28 pm, EST. Coding Level of Care Code Est Pt Level 4 (79802) Diagnoses Osteoarthritis of right knee, unspecified osteoarthritis type M17.11 Osteoarthritis type: unspecified Osteoarthritis of left knee, unspecified osteoarthritis type M17.12 Osteoarthritis type: unspecified Class 3 severe obesity with body mass index (BMI) of 45.0 to 49.9 in adult, unspecified obesity type, unspecified whether serious comorbidity present E66.01; Z68.42 Body mass index: BMI 45.0-49.9 Obesity classification: adult class 3 (BMI >= 40) Obesity type: unspecified obesity type Serious obesity comorbidity presence: unspecified whether serious comorbidity present
[2023-07-02 14:50] VITALS: BMI 45.2
== END 2023-07-02 15:15 | disposition home or self-care (01) ==
PROVIDERS: PCP Nurse Practitioner Family; Visit Provider Physician Assistant
DX: M17.0 Bilateral primary osteoarthritis of knee (principal); E66.01 Morbid (severe) obesity due to excess calories; Z68.42 Body mass index [BMI] 45.0-49.9, adult
CPT/HCPCS: 99213

== ENCOUNTER 2023-07-02 14:08 | Outpatient (REF) | payer OTHER, SELFPAY ==
--- NOTE | ~2023-07-02 | XR_ITS ---
EXAMINATION: XR KNEE, LEFT CLINICAL INFORMATION: Pain and unspecified knee. COMPARISON: 11/11/2022 TECHNIQUE: Lateral and sunrise views only of the left knee. FINDINGS: Trace joint effusion. Small posterior patellar spurs with degenerative changes redemonstrated. Small anterior superior patellar spur redemonstrated. XR/XR knee LT 2V IMPRESSION: Mild degenerative changes on lateral and sunrise views only. Frontal views should be considered for further evaluation.
== END 2023-07-02 14:09 | disposition home or self-care (01) ==
LOC: HO.HOSX 14:08
PROVIDERS: PCP Nurse Practitioner Family; Visit Provider Orthopaedic Surgery
DX: M17.0 Bilateral primary osteoarthritis of knee (principal); E66.01 Morbid (severe) obesity due to excess calories; Z68.42 Body mass index [BMI] 45.0-49.9, adult
CPT/HCPCS: 73560; 99212

== ENCOUNTER 2023-07-09 12:01 | Outpatient (AMB) | payer OTHER, SELFPAY ==
--- NOTE | 2023-07-09 12:23 | MHC.OFFVIS ---
Vital Signs 07/09/23 12:34 Height 5 ft 6 in Weight 280 lb BMI 45.2 Intake Visit Reasons: ov- B/L Shoulder follow up Allergies acetaminophen [From Tylenol] Allergy (Mild, Verified 07/02/23 14:49) Hives HPI HPI ov- B/L Shoulder follow up: Details: This is a 58-year-old woman with right shoulder arthritis. We discussed shoulder replacement but given her age and comorbidities we elected to treat this non operatively. She states she was doing well with physical therapy but her last few weeks she has had worsening right shoulder pain and she has been having difficulty sleeping. She denies any injury. [facility] Medical History History of high blood pressure No pertinent past medical history Surgical History History of surgery Hx of oral surgery Hx of knee surgery History of back surgery Hx of breast surgery Family History Mother Lung cancer Colon cancer High blood pressure Social History Housing: Apartment Alcohol intake: never Patient Tobacco Use Status: Former Tobacco user Tobacco use type: Cigarette e-Cigarette/Vaping Use: Currently Using service: No Current occupational status: disabled Cognitive needs: No Hearing needs: No Vision needs: Yes Physical Exam Vital Signs: BMI result Body Mass Index 45.2 Extrem Other: On examination she has tenderness to palpation over the anterior shoulder and pain with passive external rotation past 30 degrees and pain with abduction past 70 degrees. She can get her hand to the back of her head. Assessment & Plan Assessment & Plan (1) Arthritis of right glenohumeral joint: Code(s): M19.011 - Primary osteoarthritis, right shoulder Category: Medical Plan: Right shoulder OA. She is opposed to injections but that is my recommendation at this point. I think we could get the inflammation and pain to subside and as long as she modifies her activities I think she would do okay without surgery. I am still hesitant to recommend surgery for her. I explained this to her. She will contact me if she wants to proceed forward with injections. Coding Level of Care Code Est Pt Level 3 (41066) Diagnoses Arthritis of right glenohumeral joint M19.011
[2023-07-09 12:34] VITALS: BMI 45.2
== END 2023-07-09 12:51 | disposition home or self-care (01) ==
PROVIDERS: PCP Nurse Practitioner Family; Visit Provider Orthopaedic Surgery
DX: M19.011 Primary osteoarthritis, right shoulder (principal)
CPT/HCPCS: 99213

== ENCOUNTER → 2023-07-09 12:01 | Outpatient (BNVA) | payer OTHER, SELFPAY | PROVIDERS: PCP Nurse Practitioner Family; Visit Provider Orthopaedic Surgery | DX: M19.011 Primary osteoarthritis, right shoulder (principal) | CPT/HCPCS: 99212 ==

== ENCOUNTER 2023-09-28 15:54 | Outpatient (REF) | payer OTHER, SELFPAY ==
[2023-09-28 19:07] LABS: Free T4 (Free Thyroxine) 1.01 ng/dL (0.71-1.85)
[2023-09-28 19:08] LABS: Vitamin D 25-OH Total 56.8 ng/mL (>30)
[2023-09-30 08:48] LABS: Triiodothyronine T3 Free 2.8 pg/mL (2.3-4.2)
== END 2023-09-28 15:55 | disposition home or self-care (01) ==
LOC: HO.WFDLDS 15:54
PROVIDERS: Internal Medicine Endocrinology, Diabetes & Metabolism; Visit Provider Nurse Practitioner Family
DX: E05.90 Thyrotoxicosis, unspecified without thyrotoxic crisis or storm (principal); E55.9 Vitamin D deficiency, unspecified
CPT/HCPCS: 36415; 82306; 84439; 84481

== ENCOUNTER 2023-10-05 15:12 | Outpatient (AMB) | payer OTHER, SELFPAY ==
--- NOTE | 2023-10-05 15:15 | A.OFFPC_ITS ---
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 Required: No Is last menstrual period known: No Post menopausal: No Patient : No Allergies acetaminophen [From Tylenol] Allergy (Mild, Verified 10/05/23 15:43) Hives Medication List - Last Reconciled 10/05/23 by Jaime Bach CNP betamethasone valerate 0.1% 1 appl topical BID PRN hydrochlorothiazide 25 mg PO DAILY 90 days ibuprofen 800 mg PO Q12H PRN lisinopril 40 mg PO DAILY 90 days nystatin 1 appl topical BID Tobacco use date assessed: 10/05/23 Dental Screening Dental Screen Date: 10/05/23 (patient has dentures) Did you have a dental visit in the last 12 months?: No Did you have a dental problem in the last 6 months where you did not have access to dental care?: No Was dental information given to patient?: Patient declined HPI HPI Comments History of Present Illness Details 58-year-old female presents for hyperten jossy follow-up She admits to taking hydrochlorothiazide and lisinopril as prescribed without adverse reactions She admits to maintaining low-sodium diet She offers no complaints and denies acute symptoms at this time She notes that she started seeing a therapist bi-weekly and a psychiatrist monthly at [facility] in [facility] Medical History History of high blood pressure No pertinent past medical history Surgical History History of surgery Hx of oral surgery Hx of knee surgery History of back surgery Hx of breast surgery Family History Mother Lung cancer Colon cancer High blood pressure Social History Housing: Apartment Alcohol intake: never Patient Tobacco Use Status: Former Tobacco user Tobacco use type: Cigarette e-Cigarette/Vaping Use: Currently Using service: No Current occupational status: disabled Cognitive needs: No Hearing needs: No Vision needs: Yes Questionnaire Thrive Questionnaire Date Thrive assessed: 04/03/22 RANJIT-7 AMB Questionnaire RANJIT-7 Date RANJIT - 7 assessed: 06/04/22 Source: Developed by Drs. Pan Bunch, Meron Kennedy, Aldair Alston and colleagues, with an educational tamera from [employer]. Review of Systems Const Details: Const Denies chills, Denies fatigue, Denies fever(s), Denies headache(s) and Denies weakness ENT Denies dizziness and Denies headache(s) Card Denies chest pain, Denies lightheadedness, Denies dyspnea and Denies other (Palpitations) Resp Denies cough, Denies dyspnea, Denies wheezing and Denies other ( shortness of breath) GI Denies abdominal pain, Denies melena, Denies hematochezia, Denies change in bowel habits, Denies dyspepsia and Denies nausea Denies hematuria and Denies dysuria Musc Denies abnormal gait, Denies myalgias, Denies arthralgias, Denies numbness and Denies tingling Skin/Breast Denies rash, Denies unusual bruising and Denies wounds Neuro Denies abnormal gait, Denies dizziness, Denies headache(s), Denies memory loss, Denies numbness, Denies Sensory deficit (Neuro), Denies tingling and Denies weakness Psych Denies anxiety, Denies depression, Denies memory loss Endo Denies cold intolerance, Denies fatigue, Denies heat intolerance, Denies polydipsia and Denies polyuria Aller/Immun Denies wheezing Physical exam (Primary Care) Vital Signs: Last Vital Signs Temp 97.8 F 10/05/23 15:29 Pulse 73 10/05/23 15:29 Resp 16 10/05/23 15:29 BP 117/57 L 10/05/23 15:29 Pulse Ox 98 10/05/23 15:29 Oxygen Delivery Method Room Air 10/05/23 15:29 BMI result Body Mass Index 45.5 Tobacco/Smoking Status: Tobacco use Status Tobacco use date assessed 10/05/23 10/05/23 15:30 Patient Tobacco Use Status Former Tobacco user 10/05/23 15:16 Tobacco use type Cigarette 10/05/23 15:16 e-Cigarette/Vaping Use Currently Using 10/05/23 15:16 Thrive Assessment: Date of Thrive Assessment Date Thrive assessed 04/03/22 10/05/23 15:16 Const Other: General: no acute distress and well developed Nutritional Appearance: well nourished Orientation/consciousness: patient oriented x3 HENMT Head: Yes normocephalic and Yes atraumatic Eyes General: appearance normal, both eyes and all related structures Pupils: Equal, round and reactive pupils present EOM: EOMs intact bilaterally Resp Effort & Inspection: normal respiratory effort Auscultation: clear to auscultation bilaterally Cardio Rate: regular rate Rhythm: regular rhythm Heart sounds: S1 normal heart sound present, S2 normal heart sound present, no gallops, no murmurs and no rubs GI Palpation (GI): No Abdominal aortic bruit present, Soft to palpation, nontender, No hepatosplenomegaly present and No Rebound tenderness present Auscultation: normal bowel sounds General: Yes no CVA tenderness Back/Spine/Pelvis Back: no CVA tenderness Cervical Spine: cervical ROM normal and No Cervical spine tenderness Thoracic/Lumbar Spine: thoraco-lumbar ROM normal, No pain with thoraco-lumbar ROM, No thoracic spinal tenderness and No lumbar spinal tenderness Extrem General: Yes normal to inspection, No edema and No calf tenderness Skin General: warm and dry. Normal skin color. Normal skin turgor Neuro General: patient oriented x3, gait normal and no focal neuro deficit Cranial nerves: Yes Equal, round and reactive pupils present Cognition (Neuro): normal cognition Gait exam (Neuro): Normal gait present Sensory Exam: No Sensory deficit (Neuro) Psych Appearance: grossly normal Affect: normal affect Attitude: cooperative Thought process: Normal thought process present Assessment and Plan Assessment & Plan (1) Essential hypertension: Code(s): I10 - Essential (primary) hypertension Plan: Resting blood pressure is 110/80, within goal of less than 140/90 Continue current treatment regimen Low-sodium diet encouraged Advised to get urine lab work before her next visit Follow-up in 1 month for complete physical exam or sooner with symptoms or concerns Verbalized understanding and agreed with the treatment plan (2) Vitamin D deficiency: Code(s): E55.9 - Vitamin D deficiency, unspecified Plan: Recent vitamin D level is normal, 56. Previous vitamin-D level was 14.2. She completed a course of vitamin D3 Will order vitamin D3 2000 units daily. Advised to take as prescribed Verbalized understanding and agreed with the plan Orders: Orders UA CC w/rflx Micro + Cult Today Z00.00 - Encounter for general adult medical examination without abnormal findings Microalbumin, Random (w Creat) Today Z00.00 - Encounter for general adult medical examination without abnormal findings Medications: New cholecalciferol (vitamin D3) 50 mcg PO DAILY 90 days 90 tabs 1RF Coding Level of Care Code Est Pt Level 4 (24619) Complex EM visit Add On G2211 Diagnoses Essential hypertension I10 Vitamin D deficiency E55.9
[2023-10-05 15:29] VITALS: BP 117/57; PULSE 73; RESP 16; TEMP 36.6; O2SAT 98; BMI 45.5
[2023-10-05 15:55] VITALS: BP 110/80
== END 2023-10-05 16:01 | disposition home or self-care (01) ==
PROVIDERS: PCP Nurse Practitioner Family; Visit Provider Nurse Practitioner Family
DX: I10 Essential (primary) hypertension (principal); E55.9 Vitamin D deficiency, unspecified
CPT/HCPCS: 99214; G2211

== ENCOUNTER 2024-04-15 13:04 | Outpatient (AMB) | payer OTHER, SELFPAY ==
--- NOTE | 2024-04-15 13:11 | A.OFFPC_ITS ---
Vital Signs 04/15/24 13:19 Height 5 ft 6 in Weight 270 lb BMI 43.6 BP 130/60 Blood Pressure Location Lt brachial Position Sitting Respiration 14 Pulse 70 Pulse Source Pulse Oximeter Temp 97.7 F Temp Source Oral Pulse Oximetry (%) 97 Oxygen Delivery Method Room Air Intake Visit Reasons: Annual Physical Intake Note: annual physical Is last menstrual period known: No Post menopausal: Yes Patient : No Allergies acetaminophen [From Tylenol] Allergy (Mild, Verified 04/15/24 13:28) Hives Medication List - Last Reconciled 04/15/24 by Jaime Bach CNP betamethasone valerate 0.1% 1 appl topical BID PRN cholecalciferol (vitamin D3) 50 mcg PO DAILY 90 days hydrochlorothiazide 25 mg PO DAILY 90 days ibuprofen 800 mg PO Q12H PRN lisinopril 40 mg PO DAILY 90 days nystatin 1 appl topical BID Tobacco use date assessed: 04/15/24 Dental Screening Dental Screen Date: 04/15/24 (patient has dentures) Did you have a dental visit in the last 12 months?: No Did you have a dental problem in the last 6 months where you did not have access to dental care?: No Was dental information given to patient?: No HPI HPI Comments History of Present Illness Details 58-year-old female presents for an exten ded physical exam Acute issue(s) - Reports difficulty difficulty falling or staying asleep for many years - She notes intermittent posterior cervi tono pain with crunching sound which has been ongoing for the past 2 months. Denies fall, injury, or trauma - She has chronic persistent bilat knee pain - Reports anxiety and depression symptom s which she attributes to family issues and constant thoughts Past Medical History - Hypertension, hyperthyroidism, prediab etes, myopia, osteoarthritis of right shoulder, osteoarthritis of left knee, osteoarthritis right knee, post- laminectomy syndrome, psoriasis, obesity, vitamin-D deficiency, anxiety, and depression Social History - Former smoker, smoked 6 cigarettes edin ly x 20 yrs, quit 6-7 years ago. Vapes 6-7 puffs nicotine daily. Does not drink alcohol. Denies recreational drug use - Has been making healthy dietary choice s. Walks routinely. Reports difficulty difficulty falling or staying asleep for many years Health maintenance - Last eye exam was 2 months ago a Aleksandra lucero. She wears glasses for myopia and reading - Last dental 5 years ago; encouraged to schedule an appointment with his dentist for routine dental care - Last tetanus vaccine was more than 10 years ago; she will get vaccinated her next visit - Has not been vaccinated for the flu ; declines the vaccine - She has not been vaccinated for the sh ingles. Encouraged to get vaccinated at the local pharmacy - History of total hysterectomy - Last mammogram was in 12/12/2022. Padmini gutierrez ordered - Last colonoscopy was more that 9 years ago. Referred to [facility] [place] Special[facility] Therapist at [facility] bi-weekly She stopped seeing her psychiatrist from [facility] about a month ago. She is searching for a new psychiatrist [facility] Medical History History of high blood pressure No pertinent past medical history Surgical History History of surgery Hx of oral surgery Hx of knee surgery History of back surgery Hx of breast surgery Family History Mother Lung cancer Colon cancer High blood pressure Social History Housing: Apartment Alcohol intake: never Patient Tobacco Use Status: Former Tobacco user Tobacco use type: Cigarette e-Cigarette/Vaping Use: Currently Using service: No Current occupational status: disabled Cognitive needs: No Hearing needs: No Vision needs: Yes Questionnaire PHQ-9 Over the last 2 weeks, how often have you been bothered by any of the following problems? 1. Little interest or pleasure in doing things: more than half the days 2. Feeling down, depressed, or hopeless: several days 3. Trouble falling or staying asleep, or sleeping too much: several days 4. Feeling tired or having little energy: several days 5. Poor appetite or overeating: more than half the days 6. Feeling bad about yourself - or that you are a failure or have let yourself or your family down: more than half the days 7. Trouble concentrating on things, such as reading the newspaper or watching television: nearly every day 8. Moving or speaking so slowly that other people could have noticed. Or the opposite - being so fidgety or restless that you have been moving around a lot more than usual: more than half the days 9. Thoughts that you would be better off or of hurting yourself in some way: not at all Total score: 14 Depression Screening Interpretation: Positive Depression Screening Follow-up: Existing condition and In treatment Depression Screening Done: Yes 69853 - PHQ-9 Billing: Yes Source: Developed by Drs. Pan Bunch, Meron Kennedy, Aldair Alston and colleagues, with an educational tamera from [employer]. Thrive Questionnaire Date Thrive assessed: 04/15/24 I am a: Patient What is your living situation today?: I have a steady place to live Within the past 12 months, did the food you bought not last and you didn't have the money to get more?: Never true Within the past 12 months, did you worry whether your food would run out before you got money to buy more?: Never true Do you have trouble paying for medicines?: No Do you have trouble getting transportation to medical appointments?: No Do you have trouble paying your heating and electricity bill?: No Do you have trouble taking care of your child, family member or friend?: No Do you have trouble with day-to-day activities such as bathing, preparing meals, shopping, managing finances, etc.?: Yes Are you currently unemployed and looking for a job?: No Are you interested in more education?: No Please select the resources that you would like help with: None Currently or been in a relationship where the following occur: No concerns reported THRIVE Score: 0 AUDIT C Alcohol Use Questionnaire (AUDIT-C) 1. How often do you have a drink containing alcohol?: Never 3. How often do you have six or more drinks on one occasion?: Never Total Score: 0 Score Reviewed/Action Taken: Yes RANJIT-7 AMB Questionnaire RANJIT-7 Date RANJIT - 7 assessed: 04/15/24 Feeling nervous, anxious, or on edge: 3 = Nearly every day Not being able to stop or control worryin = Nearly every day Worrying too much about different things: 3 = Nearly every day Trouble relaxin = More than half the days Being so restless that it is hard to sit still: 2 = More than half the days Becoming easily annoyed or irritable: 2 = More than half the days Feeling afraid as if something awful might happen: 3 = Nearly every day Total RANJIT-7 score (0-4 normal; 5-9 mild; 10-14 moderate; 15-21 severe): 18 Source: Developed by Drs. Pan Bunch, Meron Kennedy, Aldair Alston and colleagues, with an educational tamera from [employer]. RANJIT-7 Assessment Billing RANJIT-7 Assessment Tool: RANJIT-7 Assessment 79545 Review of Systems Const Details: Denies chills, Denies fatigue, Denies fever(s), Denies headache(s) and Denies weakness HEENT Denies change in vision, Denies dizziness, Denies headache(s), Denies hearing loss, Denies nasal congestion, Denies sinus pain, Denies sinus pressure and Denies sore throat Card Denies chest pain, Denies lightheadedness, Denies dyspnea and Denies other (palpitations) Resp Denies cough, Denies dyspnea and Denies wheezing GI Denies abdominal pain, Denies melena, Denies hematochezia, Denies change in bowel habits, Denies dyspepsia and Denies nausea Denies hematuria and Denies dysuria Musc Reports posterior neck pain and bilat knee pain, Denies abnormal gait, Denies numbness and Denies tingling Skin/Breast Denies rash, Denies unusual bruising and Denies wounds Neuro Denies abnormal gait, Denies dizziness, Denies headache(s), Denies memory loss, Denies numbness, Denies Sensory deficit (Neuro), Denies tingling and Denies weakness Psych Reports anxiety, Reports depression and Denies memory loss Endo Denies cold intolerance, Denies fatigue, Denies heat intolerance, Denies polydipsia and Denies polyuria Armando/Lymph Denies easy bleeding and Denies easy bruising Aller/Immun Denies wheezing Physical exam (Primary Care) Vital Signs: Last Vital Signs Temp 97.7 F 04/15/24 13:19 Pulse 70 04/15/24 13:19 Resp 14 04/15/24 13:19 BP 130/60 04/15/24 13:19 Pulse Ox 97 04/15/24 13:19 Oxygen Delivery Method Room Air 04/15/24 13:19 BMI result Body Mass Index 43.6 Tobacco/Smoking Status: Tobacco use Status Tobacco use date assessed 04/15/24 04/15/24 13:22 Patient Tobacco Use Status Former Tobacco user 04/15/24 13:11 Tobacco use type Cigarette 04/15/24 13:11 e-Cigarette/Vaping Use Currently Using 04/15/24 13:11 PHQ-9: PHQ-9 Score PHQ-9: Total score 14 04/15/24 13:14 Depression Screening Interpretation: Positive Depression Screening Follow-up: Existing condition and In treatment Thrive Assessment: Date of Thrive Assessment Date Thrive assessed 04/15/24 04/15/24 13:14 Currently or been in a relationship where the following occur: No concerns reported Const Other: General: no acute distress, well developed, alert and awake Nutritional Appearance: well nourished Orientation/consciousness: patient oriented x3 HENMT Head: Yes normocephalic and Yes atraumatic Ears: hearing grossly normal bilaterally and TM's normal bilaterally General nose exam: Normal external nose present and Normal nares present Mouth: Normal oral and palatal mucosa present and moist mucous membranes Teeth and gingiva: full dentures Throat: Yes oropharynx normal Eyes Pupils: Equal, round and reactive pupils present and Pupil accommodation reflex normal EOM: EOMs intact bilaterally Neck Neck: Yes normal visual inspection, Yes no lymphadenopathy and Yes trachea midline Thyroid: Thyroid normal Carotids: no bruits Lymphatic: no lymphadenopathy noted Chest Chest palpation & inspection: normal inspection of the chest Resp Effort & Inspection: normal respiratory effort Auscultation: clear to auscultation bilaterally Cardio Rate: regular rate Rhythm: regular rhythm Heart sounds: S1 normal heart sound present, S2 normal heart sound present, no gallops, no murmurs and no rubs Bruits: no abdominal aortic bruits and no carotid bruits GI Palpation (GI): No Abdominal aortic bruit present, Soft to palpation, nontender, No hepatosplenomegaly present and No Rebound tenderness present Auscultation: normal bowel sounds General: Yes no CVA tenderness Back/Spine/Pelvis Back: no CVA tenderness Cervical Spine: cervical ROM normal and +Cervical spine tenderness Thoracic/Lumbar Spine: thoraco-lumbar ROM normal, No pain with thoraco-lumbar ROM, No thoracic spinal tenderness and No lumbar spinal tenderness Skin General: warm and dry. Normal skin color. Normal skin turgor Lesions: no lesions Rashes: Red patches with silvery scales to the elbows and dorsum of hands, consistent with psoriasis Trauma: no lacerations or abrasions Wounds: no wounds Nails: normal Neuro General: patient oriented x3, gait normal and CN's II-XI intact bilaterally Cranial nerves: Yes Equal, round and reactive pupils present Cognition (Neuro): normal cognition Gait exam (Neuro): Normal gait present Motor exam (neuro): 5/5 motor strength present throughout Sensory Exam: No Sensory deficit (Neuro) Deep tendon reflexes (DTR's): Right patellar reflex intensity grade: 2+ and Left patellar reflex intensity grade: 2+ Extrem General: Yes normal to inspection, No edema and No calf tenderness Psych Appearance: grossly normal Affect: normal affect Attitude: cooperative Thought process: Normal thought process present Results AMB Hemoglobin A1c AMB Hemoglobin A1c 6.4 % Last Edit by Parker Turner CMA on 04/15/24 13:25 Results Reviewed Results Reviewed: Laboratory Last Values Hgb A1c (Clinic) 6.4 % (4.0-6.0) H 04/15/24 13:24 Coding Level of Care Code Est Pt Level 4 (69675) Est Pt Prev Care 40-64y(09747) Diagnoses Encounter for routine adult physical exam with abnormal findings Z00.01 Osteoarthritis of right knee, unspecified osteoarthritis type M17.11 Osteoarthritis type: unspecified Osteoarthritis of left knee, unspecified osteoarthritis type M17.12 Osteoarthritis type: unspecified Anxiety and depression F41.9; F32.A Neck pain M54.2 Colon cancer screening Z12.11 Breast cancer screening by mammogram Z12.31 Psoriasis L40.9 Engages in vaping Z72.89 Class 3 severe obesity with body mass index (BMI) of 45.0 to 49.9 in adult, unspecified obesity type, unspecified whether serious comorbidity present E66.01; Z68.42 Obesity type: unspecified obesity type Obesity classification: adult class 3 (BMI >= 40) Serious obesity comorbidity presence: unspecified whether serious comorbidity present Body mass index: BMI 45.0-49.9 Vitamin D deficiency E55.9 Laboratory tests ordered as part of a complete physical exam (CPE) Z00.00 Additional Codes RANJIT-7 Assessment Billing - RANJIT-7 Assessment Tool: RANJIT-7 Assessment 81333 ([id number]) PHQ-9 - 85176 - PHQ-9 Billing: Yes ([id number]) Assessment & Plan Assessment & Plan (1) Encounter for routine adult physical exam with abnormal findings: Code(s): Z00.01 - Encounter for general adult medical examination with abnormal findings Category: Medical Plan: Significant bilateral knee pain and functional limitations noted. Continue current treatment regimen. Perform lab work and follow-up in a month for hypertension and labs review or sooner with worsening or new symptoms. Verbalized understanding and agreed with treatment plan. (2) Osteoarthritis of right knee: Code(s): M17.11 - Unilateral primary osteoarthritis, right knee Category: Medical Qualifiers: Osteoarthritis type: unspecified Qualified Code(s): M17.11 - Unilateral primary osteoarthritis, right knee Plan: Reports chronic persistent bilateral knee pain. She was followed by [facility] [place] but stopped seeing them because injections were recommended but she wants to avoid them. She searching for an credit card specialist that can manage her knee without injections and will notify her PCP for referral as needed. Meanwhile, she takes ibuprofen as prescribed. Physical therapy was not effective. Encouraged to continue current treatment regimen. Lidocaine patch ordered; advised to use as prescribed. Follow-up as needed; verbalized understanding and agreed with the plan. (3) Osteoarthritis of left knee: Code(s): M17.12 - Unilateral primary osteoarthritis, left knee Category: Medical Qualifiers: Osteoarthritis type: unspecified Qualified Code(s): M17.12 - Unilateral primary osteoarthritis, left knee Plan: Plan as above. (4) Anxiety and depression: Code(s): F41.9 - Anxiety disorder, unspecified; F32.A - Depression, unspecified Category: Medical Plan: Attributes anxiety and depressive symptoms to constant thoughts related to family issues. She has had sleep disturbance for several years. She stopped seeing her psychiatrist for [facility] in about a month ago and is looking for a new psychiatrist. She is followed by a psychiatrist [facility] biweekly. She is on hydroxyzine 25 mg twice daily as needed and sertraline 25 mg daily. Advised to take as prescribed. Routine exercise encouraged. Follow-up with worsening or new symptoms. Verbalized understanding and agreed with the plan. (5) Neck pain: Code(s): M54.2 - Cervicalgia Category: Medical Plan: She has been experiencing intermittent posterior cervical pain with crunching so und for the past 2 months. No fall, injury, or trauma. Cervical spine tenderness to palpation. No overt injury or trauma noted. Advised to take ibuprofen as needed. Warm/cool compresses and stretching as tolerable encouraged. X-ray ordered; will check results and make changes as needed. Verbalized understanding and agreed with treatment plan. (6) Colon cancer screening: Code(s): Z12.11 - Encounter for screening for malignant neoplasm of colon Category: Medical Plan: Last colonoscopy was more that 9 years ago. Referred to [facility] [place] for a colonoscopy. (7) Breast cancer screening by mammogram: Code(s): Z12.31 - Encounter for screening mammogram for malignant neoplasm of breast Category: Medical Plan: Last mammogram was in 12/12/2022. Mammogram ordered. (8) Psoriasis: Code(s): L40.9 - Psoriasis, unspecified Category: Medical Plan: Red patches with silvery scales to the elbows and dorsum of hands, consistent with psoriasis. Betamethasone cream as prescribed. May refer dermatology worsens or not improved. (9) Engages in vaping: Code(s): Z72.89 - Other problems related to lifestyle Category: Medical Plan: She vapes 6-7 puffs of nicotine daily. Instructed on the health risks and complications of vaping and encouraged to stop. Declines medication to help with nicotine use. She will follow-up as needed. Verbalized understanding and agreed with the plan. (10) Obesity: Code(s): E66.9 - Obesity, unspecified Category: Medical Qualifiers: Obesity type: unspecified obesity type Obesity classification: adult class 3 (BMI >= 40) Serious obesity comorbidity presence: unspecified whether serious comorbidity present Body mass index: BMI 45.0-49.9 Qualified Code(s): E66.01 - Morbid (severe) obesity due to excess calories; Z68.42 - Body mass index [BMI] 45.0-49.9, adult Plan: She currently weighs 270 lb, BMI is 43.6. Healthy diet and routine exercise encouraged. 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 Verbalized understanding and agreed with the plan. (11) Vitamin D deficiency: Code(s): E55.9 - Vitamin D deficiency, unspecified Category: Medical Plan: Continue current treatment regimen. Will check vitamin-D level and make changes as needed. Verbalized understanding and agreed with treatment plan. (12) Laboratory tests ordered as part of a complete physical exam (CPE): Code(s): Z00.00 - Encounter for general adult medical examination without abnormal findings Category: Medical Plan: Fasting labs ordered as part of a complete physical exam. Advised to fast for at least 10 hours before getting labs drawn. May drink water Verbalized understanding and agreed with treatment plan. Orders: Orders AMB Hemoglobin A1c Today R73.03 - Prediabetes Comprehensive [place]. Panel Fast Today Z00.00 - Encounter for general adult medical examination without abnormal findings UA CC w/rflx Micro + Cult Today Z00.00 - Encounter for general adult medical examination without abnormal findings Microalbumin, Random (w Creat) Today Z00.00 - Encounter for general adult medical examination without abnormal findings XR cervical spine 2V Today M54.2 - Cervicalgia Complete Blood Count Auto Diff Today Z00.00 - Encounter for general adult medical examination without abnormal findings Lipid Panel Today Z00.01 - Encounter for general adult medical examination with abnormal findings TSH reflex Free T4 Today Z00.00 - Encounter for general adult medical examination without abnormal findings MM screening mammo BI Today Z12.31 - Encounter for screening mammogram for malignant neoplasm of breast Vitamin D 25-OH Total Today E55.9 - Vitamin D deficiency, unspecified Referrals Gastroenterology Referral Z12.11 - Encounter for screening for malignant neoplasm of colon Medications: New sertraline 25 mg PO DAILY hydroxyzine HCl 25 mg PO BID PRN lidocaine 5% leave on most painful area for up to 12 hrs 1 patch topical DAILY 30 ea 2RF Refilled betamethasone valerate 0.1% 1 appl topical BID PRN 60 grams 2RF skin irritation lisinopril 40 mg PO DAILY 90 days 90 tabs 1RF hydrochlorothiazide 25 mg PO DAILY 90 days 90 tabs 1RF cholecalciferol (vitamin D3) 50 mcg PO DAILY 90 days 90 tabs 1RF ibuprofen 800 mg PO Q12H PRN 30 tabs 3RF fever or pain
[2024-04-15 13:19] VITALS: BP 130/60; PULSE 70; RESP 14; TEMP 36.5; O2SAT 97; BMI 43.6
== END 2024-04-15 14:10 | disposition home or self-care (01) ==
PROVIDERS: PCP Nurse Practitioner Family; Visit Provider Nurse Practitioner Family
DX: Z00.00 Encounter for general adult medical examination without abnormal findings (principal); M17.0 Bilateral primary osteoarthritis of knee; Z68.42 Body mass index [BMI] 45.0-49.9, adult; E66.01 Morbid (severe) obesity due to excess calories; F41.9 Anxiety disorder, unspecified; F32.A Depression, unspecified; M54.2 Cervicalgia; Z12.11 Encounter for screening for malignant neoplasm of colon; Z12.31 Encounter for screening mammogram for malignant neoplasm of breast; L40.9 Psoriasis, unspecified; R73.03 Prediabetes

== ENCOUNTER → 2024-04-15 13:04 | Outpatient (BNVA) | payer OTHER, SELFPAY | PROVIDERS: PCP Nurse Practitioner Family; Visit Provider Nurse Practitioner Family | DX: Z00.01 Encounter for general adult medical examination with abnormal findings (principal); M17.0 Bilateral primary osteoarthritis of knee; F41.9 Anxiety disorder, unspecified; F32.A Depression, unspecified; M54.2 Cervicalgia; E66.01 Morbid (severe) obesity due to excess calories; Z68.42 Body mass index [BMI] 45.0-49.9, adult; Z71.3 Dietary counseling and surveillance; E55.9 Vitamin D deficiency, unspecified | CPT/HCPCS: 83036; 96127; 99212; 99396 ==

== ENCOUNTER 2024-04-18 07:40 | Outpatient (REF) | payer OTHER, SELFPAY ==
[2024-04-18 10:54] LABS: MANUAL DIFF FLAG NO
[2024-04-18 10:55] LABS: Appearance Urine Clear; Color Urine Yellow; Glucose Urine UA Negative (Negative); Leukocyte Esterase Urine Negative (Negative); Nitrite Urine Negative (Negative); PH 6.5 (5.0-9.0); Urine Blood Negative (Negative); Urine Ketones Negative (Negative); Urine Protein Negative (Neg-Trace)
[2024-04-18 10:56] LABS: Basophils Absolute Auto 0.1 X10*3/uL (0.0-0.2); Basophils Percent Auto 1.2 % (0-2); Eosinophils Absolute Auto 0.4 X10*3/uL (0.0-0.4); Eosinophils Percent Auto 5.9 % (0-4); Hematocrit 40.9 % (37.0-47.0); Hemoglobin 12.9 g/dl (12.0-16.0); Imm Gran Abs Auto 0.01 X10*3/uL (0.00-0.03); Imm Gran Pct Auto 0.1 % (0.0-0.4); Lymphocytes Absolute Auto 3.6 X10*3/uL (1.2-4.9); Lymphocytes Percent Auto 49.7 % (20-40); Mean Corpuscular HGB Conc 31.5 g/dl (31.0-35.0); Mean Corpuscular Hemoglobin 29.1 pg (27.0-33.0); Mean Corpuscular Volume 92.3 fL (80.0-98.0); Mean Platelet Volume 12.1 fL (9.4-12.3); Monocytes Absolute Auto 0.5 X10*3/uL (0.1-1.2); Monocytes Percent Auto 7.1 % (2-11); Neutrophils Absolute Auto 2.6 x10*3/uL (2.0-8.3); Platelet Count 201 X10*3/uL (160-400); Red Blood Count 4.43 X10*6/uL (4.20-5.50); Red Cell Distribution Width 13.7 % (11.0-16.0); White Blood Count 7.3 X10*3/uL (4.8-10.8)
[2024-04-18 11:27] LABS: Alanine Aminotransferase 59 U/L (0-31); Albumin Level 3.5 g/dL (3.5-5.0); Alkaline Phosphatase 75 U/L (39-117); Anion Gap 11 (12-20); Aspartate Amino Transferase 67 U/L (5-31); Bilirubin Total 0.5 mg/dL (0.0-1.0); Blood Urea Nitrogen 21 mg/dL (9-16); Calcium 9.5 mg/dL (8.4-10.2); Carbon Dioxide 32 mmol/L (22-29); Chloride 104 mmol/L (96-108); Cholesterol 159 mg/dL (<200); Estimated Glomerular Filt Rate 39; Glucose Fasting 117 mg/dL (60-99); HDL Cholesterol 39 mg/dL (>40); LDL Cholesterol Calculated 99 mg/dL (<100); Potassium 3.5 mmol/L (3.3-5.1); Sodium 143 mmol/L (135-145); Total Protein 7.8 g/dL (6.5-8.0); Triglycerides 109 mg/dL (<150)
[2024-04-18 11:30] LABS: Creatinine Urine 134.63 mg/dL; Microalbumin Urine < 5.0 mg/L
[2024-04-18 11:33] LABS: TSH reflex Free T4 5.45 uIU/mL (0.32-4.0)
[2024-04-18 12:20] LABS: Free T4 (Free Thyroxine) 1.03 ng/dL (0.71-1.85)
== END 2024-04-18 07:41 | disposition home or self-care (01) ==
LOC: HO.WFDLDS 07:40
PROVIDERS: Visit Provider Nurse Practitioner Family
DX: Z00.01 Encounter for general adult medical examination with abnormal findings (principal); E55.9 Vitamin D deficiency, unspecified
CPT/HCPCS: 36415; 80053; 80061; 81003; 82043; 82306; 82570; 84439; 84443; 85025

== ENCOUNTER 2024-05-24 14:58 | Outpatient (AMB) | payer OTHER, SELFPAY ==
--- NOTE | 2024-05-24 15:04 | MHC.PC.OV ---
Vital Signs 05/24/24 15:12 05/24/24 15:26 Height 5 ft 6 in Weight 270 lb BMI 43.6 BP 111/59 L 100/60 Blood Pressure Location Rt brachial Rt brachial Position Sitting Sitting Respiration 16 Pulse 72 Pulse Source Pulse Oximeter Temp 97.4 F Temp Source Oral Pulse Oximetry (%) 98 Oxygen Delivery Method Room Air Intake Visit Reasons: 1 mos HTN, labs review, TDaP shot Intake Note: patient here for 1 month follown up for HTN, lab review and TDAP vaccine. 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 Is last menstrual period known: No Post menopausal: No Patient : No Allergies acetaminophen [From Tylenol] Allergy (Mild, Verified 05/24/24 15:18) Hives Medication List - Last Reconciled 05/24/24 by Jaime Bach CNP betamethasone valerate 0.1% 1 appl topical BID PRN cholecalciferol (vitamin D3) 50 mcg PO DAILY 90 days hydrochlorothiazide 25 mg PO DAILY 90 days hydroxyzine HCl 25 mg PO BID PRN ibuprofen 800 mg PO Q12H PRN levothyroxine 25 mcg PO DAILY lidocaine 5% 1 patch topical DAILY lisinopril 40 mg PO DAILY 90 days metformin 500 mg PO DAILY 30 days nystatin 1 appl topical BID sertraline 25 mg PO DAILY Tobacco use date assessed: 05/24/24 Dental Screening Dental Screen Date: 05/24/24 (patient has dentures) Did you have a dental visit in the last 12 months?: No Did you have a dental problem in the last 6 months where you did not have access to dental care?: No Was dental information given to patient?: Patient declined HPI HPI Comments History of Present Illness Details 59-year-old female presents for hypertension and recent lab results review follow-up. She has not started taking levothyroxine and metformin due to concerns about adverse reactions. She takes her other medications as prescribed. She reports sharp pain to her left occipital region for the past 2 months. The pain was intermittent but progressively worsened and has been consistent in the past 1 month. She also has chronic, persistent, sharp neck pain. She takes ibuprofen as needed with significant relief. [facility] Medical History History of high blood pressure No pertinent past medical history Surgical History History of surgery Hx of oral surgery Hx of knee surgery History of back surgery Hx of breast surgery Family History Mother Lung cancer Colon cancer High blood pressure Social History Housing: Apartment Alcohol intake: never Patient Tobacco Use Status: Former Tobacco user Tobacco use type: Cigarette e-Cigarette/Vaping Use: Currently Using Patient : No service: No Current occupational status: disabled Cognitive needs: No Hearing needs: No Vision needs: Yes Questionnaire Thrive Questionnaire Date Thrive assessed: 04/15/24 I am a: Patient What is your living situation today?: I have a steady place to live Within the past 12 months, did the food you bought not last and you didn't have the money to get more?: Never true Within the past 12 months, did you worry whether your food would run out before you got money to buy more?: Never true Do you have trouble paying for medicines?: No Do you have trouble getting transportation to medical appointments?: No Do you have trouble paying your heating and electricity bill?: No Do you have trouble taking care of your child, family member or friend?: No Do you have trouble with day-to-day activities such as bathing, preparing meals, shopping, managing finances, etc.?: Yes Are you currently unemployed and looking for a job?: No Are you interested in more education?: No Please select the resources that you would like help with: None Currently or been in a relationship where the following occur: No concerns reported THRIVE Score: 0 RANJIT-7 AMB Questionnaire RANJIT-7 Date RANJIT - 7 assessed: 04/15/24 Source: Developed by Drs. Pan Bunch, Meron Kennedy, Aldair Alston and colleagues, with an educational tamera from [employer] Review of Systems Const Details: Const Denies chills, Denies fatigue, Denies fever(s), Denies headache(s) and Denies weakness ENT Denies dizziness and Denies headache(s) Card Denies chest pain, Denies lightheadedness, Denies dyspnea and Denies other (Palpitations) Resp Denies cough, Denies dyspnea, Denies wheezing and Denies other ( shortness of breath) GI Denies abdominal pain, Denies melena, Denies hematochezia, Denies change in bowel habits, Denies dyspepsia and Denies nausea Denies hematuria and Denies dysuria Musc Reports as per HPI Skin/Breast Denies rash, Denies unusual bruising and Denies wounds Neuro Denies abnormal gait, Denies dizziness, Denies headache(s), Denies memory loss, Denies numbness, Denies Sensory deficit (Neuro), Denies tingling and Denies weakness Psych Denies anxiety, Denies depression, Denies memory loss Endo Denies cold intolerance, Denies fatigue, Denies heat intolerance, Denies polydipsia and Denies polyuria Aller/Immun Denies wheezing Physical exam (Primary Care) Vital Signs: Last Vital Signs Temp 97.4 F 05/24/24 15:12 Pulse 72 05/24/24 15:12 Resp 16 05/24/24 15:12 BP 111/59 L 05/24/24 15:12 Pulse Ox 98 05/24/24 15:12 Oxygen Delivery Method Room Air 05/24/24 15:12 BMI result Body Mass Index 43.6 Tobacco/Smoking Status: Tobacco use Status Tobacco use date assessed 05/24/24 05/24/24 15:16 Patient Tobacco Use Status Former Tobacco user 05/24/24 15:06 Tobacco use type Cigarette 05/24/24 15:06 e-Cigarette/Vaping Use Currently Using 05/24/24 15:06 Thrive Assessment: Date of Thrive Assessment Date Thrive assessed 04/15/24 05/24/24 15:06 Currently or been in a relationship where the following occur: No concerns reported Const Other: General: no acute distress and well developed Nutritional Appearance: well nourished Orientation/consciousness: patient oriented x3 HENMT Head: Yes normocephalic and Yes atraumatic Eyes General: appearance normal, both eyes and all related structures Pupils: Equal, round and reactive pupils present EOM: EOMs intact bilaterally Resp Effort & Inspection: normal respiratory effort Auscultation: clear to auscultation bilaterally Cardio Rate: regular rate Rhythm: regular rhythm Heart sounds: S1 normal heart sound present, S2 normal heart sound present, no gallops, no murmurs and no rubs GI Palpation (GI): No Abdominal aortic bruit present, Soft to palpation, nontender, No hepatosplenomegaly present and No Rebound tenderness present Auscultation: normal bowel sounds General: Yes no CVA tenderness Back/Spine/Pelvis Back: no CVA tenderness Cervical Spine: cervical ROM normal and No Cervical spine tenderness Thoracic/Lumbar Spine: thoraco-lumbar ROM normal, No pain with thoraco-lumbar ROM, No thoracic spinal tenderness and No lumbar spinal tenderness Extrem General: Yes normal to inspection, No edema and No calf tenderness Skin General: warm and dry. Normal skin color. Normal skin turgor Neuro General: patient oriented x3, gait normal and no focal neuro deficit Cranial nerves: Yes Equal, round and reactive pupils present Cognition (Neuro): normal cognition Gait exam (Neuro): Normal gait present Sensory Exam: No Sensory deficit (Neuro) Psych Appearance: grossly normal Affect: normal affect Attitude: cooperative Thought process: Normal thought process present Coding Level of Care Code Est Pt Level 4 (91025) Diagnoses Essential hypertension I10 Hyperthyroidism E05.90 Transaminitis R74.01 Headache R51.9 Chronic neck pain M54.2; G89.29 Assessment & Plan Assessment & Plan (1) Essential hypertension: Code(s): I10 - Essential (primary) hypertension Category: Medical Plan: Resting blood pressure is 100/60, within goal of less than 140/90. Continue current treatment regimen. Follow-up in 3 months or sooner with symptoms or concerns. Verbalized understanding and agreed with treatment plan. (2) Hyperthyroidism: Code(s): E05.90 - Thyrotoxicosis, unspecified without thyrotoxic crisis or storm Category: Medical Plan: Recent TSH level is slightly elevated, 5.54, free T4 is normal. Instructed to take levothyroxine as prescribed with a full glass of water, in an empty stomach, 1 hour before taking her medications or meals. Instructed on the risks, benefits, and potential adverse reactions of the medication. Advised to perform TSH/T4 blood work before next visit. Verbalized understanding and agreed with the plan. (3) Transaminitis: Code(s): R74.01 - Elevation of levels of liver transaminase levels Category: Medical Plan: Recent AST and ALT levels slightly elevated, 67 and 59 respectively. Likely hepatic steatosis. Routine exercise and diet, including low-fat encouraged. Will monitor liver enzymes periodically or with associated symptoms. Verbalized understanding and agreed with the plan. (4) Headache: Code(s): R51.9 - Headache, unspecified Category: Medical Plan: She has been experiencing sharp pain to her left occipital region for the past 2 months. The pain was intermittent but progressively worsened and has been consistent in the past 1 month. She also has chronic, persistent, sharp neck pain. She takes ibuprofen as needed with significant relief. Left occipital headache is likely due to neck pain. Advised to take ibuprofen as prescribed. Warm/cool compresses encouraged. Cyclobenzaprine 5 mg twice daily as needed ordered; advised to take as prescribed. Follow-up with worsening or new symptoms. Verbalized understanding and agreed with treatment plan. (5) Chronic neck pain: Code(s): M54.2 - Cervicalgia; G89.29 - Other chronic pain Category: Medical Plan: Plan as above. Medications: New cyclobenzaprine 5 mg PO BID PRN 30 tabs 0RF muscle spasm
[2024-05-24 15:12] VITALS: BP 111/59; PULSE 72; RESP 16; TEMP 36.3; O2SAT 98; BMI 43.6
[2024-05-24 15:26] VITALS: BP 100/60
== END 2024-05-24 15:50 | disposition home or self-care (01) ==
LOC: HO.HMCFM 14:59
PROVIDERS: PCP Nurse Practitioner Family; Visit Provider Nurse Practitioner Family
DX: I10 Essential (primary) hypertension (principal); E05.90 Thyrotoxicosis, unspecified without thyrotoxic crisis or storm; R74.01 Elevation of levels of liver transaminase levels; R51.9 Headache, unspecified; M54.2 Cervicalgia; G89.29 Other chronic pain

== ENCOUNTER → 2024-05-24 14:58 | Outpatient (BNVA) | payer OTHER, SELFPAY | PROVIDERS: PCP Nurse Practitioner Family; Visit Provider Nurse Practitioner Family | DX: I10 Essential (primary) hypertension (principal); E05.90 Thyrotoxicosis, unspecified without thyrotoxic crisis or storm; R74.01 Elevation of levels of liver transaminase levels; R51.9 Headache, unspecified; M54.2 Cervicalgia; G89.29 Other chronic pain | CPT/HCPCS: 99212 ==

== ENCOUNTER 2024-08-22 12:34 | Outpatient (AMB) | payer OTHER, SELFPAY ==
--- NOTE | 2024-08-22 12:36 | MHC.PC.OV ---
Vital Signs 08/22/24 12:53 Height 5 ft 6 in Weight 266 lb 6 oz BMI 43.0 BP 125/59 L Blood Pressure Location Lt brachial Position Sitting Respiration 16 Pulse 83 Pulse Source Pulse Oximeter Temp 98.1 F Temp Source Oral Pulse Oximetry (%) 97 Oxygen Delivery Method Room Air Intake Visit Reasons: 2 mos HTN, DM, hypothyroidism, anxiety, depression Intake Note: patient here for 2 month follow up on HTN, DM, HYpothyroidsm, anxiety and depression. 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 Is last menstrual period known: No Post menopausal: No Patient : No Allergies acetaminophen (From Tylenol) Allergy (Mild, Verified 08/22/24 13:00) Hives Medication List - Last Reconciled 08/22/24 by Jaime Bach CNP betamethasone valerate 0.1% 1 appl topical BID PRN cholecalciferol (vitamin D3) 50 mcg PO DAILY 90 days cyclobenzaprine 5 mg PO BID PRN hydrochlorothiazide 25 mg PO DAILY 90 days hydroxyzine HCl 25 mg PO BID PRN ibuprofen 800 mg PO Q12H PRN levothyroxine 25 mcg PO DAILY lidocaine 5% 1 patch topical DAILY lisinopril 40 mg PO DAILY 90 days metformin 500 mg PO DAILY 90 days nystatin 1 appl topical BID sertraline 25 mg PO DAILY Tobacco use date assessed: 08/22/24 Dental Screening Dental Screen Date: 08/22/24 (patient has dentures) Did you have a dental visit in the last 12 months?: No Did you have a dental problem in the last 6 months where you did not have access to dental care?: No Was dental information given to patient?: Patient has dentist HPI HPI Comments History of Present Illness Details 59-year-old female presents for hypertension, diabetes, hypothyroidism, anxiety, and depression follow-up. She admits to taking her medications as prescribed without adverse reactions. She notes controlled anxiety and depressive symptoms. She notes pain pain to the back of her neck which has been ongoing for the past 1 year; progressively worsened in the past 4-5 months. She reports chronic right shoulder and right knee pain. She had two rounds of PT without relief. She did not get TSH/T4 blood work for this visit as planned. [facility] Medical History History of high blood pressure No pertinent past medical history Surgical History History of surgery Hx of oral surgery Hx of knee surgery History of back surgery Hx of breast surgery Family History Mother Lung cancer Colon cancer High blood pressure Social History Housing: Apartment Alcohol intake: never Patient Tobacco Use Status: Former Tobacco user Tobacco use type: Cigarette e-Cigarette/Vaping Use: Currently Using Second Hand Smoke Exposure: No service: No Current occupational status: disabled Cognitive needs: No Hearing needs: No Vision needs: Yes Questionnaire PHQ-9 Over the last 2 weeks, how often have you been bothered by any of the following problems? 1. Little interest or pleasure in doing things: nearly every day 2. Feeling down, depressed, or hopeless: more than half the days 3. Trouble falling or staying asleep, or sleeping too much: more than half the days 4. Feeling tired or having little energy: several days 5. Poor appetite or overeating: several days 6. Feeling bad about yourself - or that you are a failure or have let yourself or your family down: several days 7. Trouble concentrating on things, such as reading the newspaper or watching television: nearly every day 8. Moving or speaking so slowly that other people could have noticed. Or the opposite - being so fidgety or restless that you have been moving around a lot more than usual: several days 9. Thoughts that you would be better off or of hurting yourself in some way: not at all Total score: 14 Depression Screening Interpretation: Positive Depression Screening Follow-up: Existing condition and In treatment Depression Screening Done: Yes 73584 - PHQ-9 Billing: Yes Source: Developed by Drs. Pan Bunch, Meron Kennedy, Aldair Alston and colleagues, with an educational tamera from [employer]. Thrive Questionnaire Date Thrive assessed: 04/15/24 I am a: Patient What is your living situation today?: I have a steady place to live Within the past 12 months, did the food you bought not last and you didn't have the money to get more?: Never true Within the past 12 months, did you worry whether your food would run out before you got money to buy more?: Never true Do you have trouble paying for medicines?: No Do you have trouble getting transportation to medical appointments?: No Do you have trouble paying your heating and electricity bill?: No Do you have trouble taking care of your child, family member or friend?: No Do you have trouble with day-to-day activities such as bathing, preparing meals, shopping, managing finances, etc.?: Yes Are you currently unemployed and looking for a job?: No Are you interested in more education?: No Please select the resources that you would like help with: None Currently or been in a relationship where the following occur: No concerns reported THRIVE Score: 0 RANJIT-7 AMB Questionnaire RANJIT-7 Date RANJIT - 7 assessed: 08/22/24 Feeling nervous, anxious, or on edge: 2 = More than half the days Not being able to stop or control worryin = Several days Worrying too much about different things: 1 = Several days Trouble relaxin = More than half the days Being so restless that it is hard to sit still: 2 = More than half the days Becoming easily annoyed or irritable: 1 = Several days Feeling afraid as if something awful might happen: 1 = Several days Total RANJIT-7 score (0-4 normal; 5-9 mild; 10-14 moderate; 15-21 severe): 10 Source: Developed by Drs. Pan Bunch, Meron Kennedy, Aldair Alston and colleagues, with an educational tamera from [employer]. RANJIT-7 Assessment Billing RANJIT-7 Assessment Tool: RANJIT-7 Assessment 06153 Review of Systems Const Details: Const Denies chills, Denies fatigue, Denies fever(s), Denies headache(s) and Denies weakness ENT Denies dizziness and Denies headache(s) Card Denies chest pain, Denies lightheadedness, Denies dyspnea and Denies other (Palpitations) Resp Denies cough, Denies dyspnea, Denies wheezing and Denies other ( shortness of breath) GI Denies abdominal pain, Denies melena, Denies hematochezia, Denies change in bowel habits, Denies dyspepsia and Denies nausea Denies hematuria and Denies dysuria Musc Reports as per HPI Skin/Breast Denies rash, Denies unusual bruising and Denies wounds Neuro Denies abnormal gait, Denies dizziness, Denies headache(s), Denies memory loss, Denies numbness, Denies Sensory deficit (Neuro), Denies tingling and Denies weakness Psych Denies anxiety, Denies depression, Denies memory loss Endo Denies cold intolerance, Denies fatigue, Denies heat intolerance, Denies polydipsia and Denies polyuria Aller/Immun Denies wheezing Physical exam (Primary Care) Vital Signs: Last Vital Signs Temp 98.1 F 08/22/24 12:53 Pulse 83 08/22/24 12:53 Resp 16 08/22/24 12:53 BP 125/59 L 08/22/24 12:53 Pulse Ox 97 08/22/24 12:53 Oxygen Delivery Method Room Air 08/22/24 12:53 BMI result Body Mass Index 43.0 Tobacco/Smoking Status: Tobacco use Status Tobacco use date assessed 08/22/24 08/22/24 12:55 Patient Tobacco Use Status Former Tobacco user 08/22/24 12:38 Tobacco use type Cigarette 08/22/24 12:38 e-Cigarette/Vaping Use Currently Using 08/22/24 12:38 PHQ-9: PHQ-9 Score PHQ-9: Total score 14 08/22/24 13:11 Depression Screening Interpretation: Positive Depression Screening Follow-up: Existing condition and In treatment Thrive Assessment: Date of Thrive Assessment Date Thrive assessed 04/15/24 08/22/24 12:38 Currently or been in a relationship where the following occur: No concerns reported Const Other: General: no acute distress and well developed Nutritional Appearance: well nourished Orientation/consciousness: patient oriented x3 HENMT Head: Yes normocephalic and Yes atraumatic Eyes General: appearance normal, both eyes and all related structures Pupils: Equal, round and reactive pupils present EOM: EOMs intact bilaterally Resp Effort & Inspection: normal respiratory effort Auscultation: clear to auscultation bilaterally Cardio Rate: regular rate Rhythm: regular rhythm Heart sounds: S1 normal heart sound present, S2 normal heart sound present, no gallops, no murmurs and no rubs GI Palpation (GI): No Abdominal aortic bruit present, Soft to palpation, nontender, No hepatosplenomegaly present and No Rebound tenderness present Auscultation: normal bowel sounds General: Yes no CVA tenderness Back/Spine/Pelvis Back: no CVA tenderness Cervical Spine: cervical ROM normal and Cervical spine tenderness Thoracic/Lumbar Spine: thoraco-lumbar ROM normal, No pain with thoraco-lumbar ROM, No thoracic spinal tenderness and No lumbar spinal tenderness Extrem General: Yes normal to inspection, No edema and No calf tenderness, Right shoulder and right knee with limited ROM, no overt injury or trauma Skin General: warm and dry. Normal skin color. Normal skin turgor Neuro General: patient oriented x3, gait normal and no focal neuro deficit Cranial nerves: Yes Equal, round and reactive pupils present Cognition (Neuro): normal cognition Gait exam (Neuro): Normal gait present Sensory Exam: No Sensory deficit (Neuro) Psych Appearance: grossly normal Affect: normal affect Attitude: cooperative Thought process: Normal thought process present Results AMB Hemoglobin A1c AMB Hemoglobin A1c 6.4 % Last Edit by Juli Simmons MA on 08/22/24 12:57 Results Reviewed Results Reviewed: Laboratory Last Values Hgb A1c (Clinic) 6.4 % (4.0-6.0) H 08/22/24 12:51 Coding Level of Care Code Est Pt Level 4 (10260) Diagnoses Type 2 diabetes mellitus E11.9 Essential hypertension I10 Hypothyroidism E03.9 Anxiety and depression F41.9; F32.A Arthritis of right glenohumeral joint M19.011 Osteoarthritis of right knee, unspecified osteoarthritis type M17.11 Osteoarthritis type: unspecified Neck pain M54.2 Additional Codes RANJIT-7 Assessment Billing - RANJIT-7 Assessment Tool: RANJIT-7 Assessment 13346 ([id number]) PHQ-9 - 90581 - PHQ-9 Billing: Yes ([id number]) Assessment & Plan Assessment & Plan (1) Type 2 diabetes mellitus: Code(s): E11.9 - Type 2 diabetes mellitus without complications Category: Medical Plan: A1c today 6.4%, within goal of less than 7.0%. Previous A1c was 6.4%. Continue current treatment regimen. ADA diet and routine exercise encouraged. Follow-up in 3 months or sooner with symptoms or concerns. Verbalized understanding and agreed with the plan. (2) Essential hypertension: Code(s): I10 - Essential (primary) hypertension Category: Medical Plan: Blood pressure is 124/59, within goal of less than 130/80. Continue current treatment regimen. Low-sodium diet encouraged. Follow-up in 3 months. Verbalized understanding and agreed with the plan. (3) Hypothyroidism: Code(s): E03.9 - Hypothyroidism, unspecified Category: Medical Plan: She did not get TSH/T4 blood work done for this visit as planned. Encouraged to get blood work done today. Will review results and make changes as needed. Verbalized understanding and agreed with the plan. (4) Anxiety and depression: Code(s): F41.9 - Anxiety disorder, unspecified; F32.A - Depression, unspecified Category: Medical Plan: She reports controlled anxiety and depressive symptoms. PHQ-9 and RANJIT-7 scores revealed moderate depression and anxiety. Continue current treatment regimen. Routine exercise encouraged. Follow-up in 3 months or sooner with symptoms or concerns. Verbalized understanding and agreed with the treatment plan. (5) Arthritis of right glenohumeral joint: Code(s): M19.011 - Primary osteoarthritis, right shoulder Category: Medical Plan: Limited ROM of the right shoulder and right knee. No overt injury or trauma noted. Continue current treatment regimen. She is followed by [facility]; her last appointment was in July 2023. Encouraged to contact Dr. Aiken's office and schedule a follow-up visit. Verbalized understanding and agreed with the plan. (6) Osteoarthritis of right knee: Code(s): M17.11 - Unilateral primary osteoarthritis, right knee Category: Medical Qualifiers: Osteoarthritis type: unspecified Qualified Code(s): M17.11 - Unilateral primary osteoarthritis, right knee Plan: Plan as above. (7) Neck pain: Code(s): M54.2 - Cervicalgia Category: Medical Plan: Cervical spine tenderness to palpation. No overt injury or trauma noted. Continue current treatment regimen. Warm/cool compresses encouraged. X-ray of the cervical spine ordered. Follow-up with worsening or new symptoms. Verbalized understanding and agreed with the treatment plan. Orders: Orders AMB Hemoglobin A1c Today E11.9 - Type 2 diabetes mellitus without complications, R73.01 - Impaired fasting glucose, R73.03 - Prediabetes AMB Hemoglobin A1c Today Z13.9 - Encounter for screening, unspecified XR cervical spine 2V Today M54.2 - Cervicalgia
[2024-08-22 12:53] VITALS: BP 125/59; PULSE 83; RESP 16; TEMP 36.7; O2SAT 97; BMI 43.0
== END 2024-08-22 13:25 | disposition home or self-care (01) ==
LOC: HO.HMCFM 12:35
PROVIDERS: PCP Nurse Practitioner Family; Visit Provider Nurse Practitioner Family
DX: E11.9 Type 2 diabetes mellitus without complications (principal); I10 Essential (primary) hypertension; E03.9 Hypothyroidism, unspecified; F41.9 Anxiety disorder, unspecified; F32.A Depression, unspecified; M19.011 Primary osteoarthritis, right shoulder; M17.11 Unilateral primary osteoarthritis, right knee; M54.2 Cervicalgia

== ENCOUNTER → 2024-08-22 12:34 | Outpatient (BNVA) | payer OTHER, SELFPAY | PROVIDERS: PCP Nurse Practitioner Family; Visit Provider Nurse Practitioner Family | DX: Z13.89 Encounter for screening for other disorder (principal) | CPT/HCPCS: 83036; 96127; 99212 ==

== ENCOUNTER 2024-08-22 13:33 | Outpatient (REF) | payer OTHER, SELFPAY ==
[2024-08-22 18:09] LABS: TSH reflex Free T4 2.32 uIU/mL (0.32-4.0)
== END 2024-08-22 13:34 | disposition home or self-care (01) ==
LOC: HO.WFDLDS 13:33
PROVIDERS: Visit Provider Nurse Practitioner Family
DX: I10 Essential (primary) hypertension (principal); E11.9 Type 2 diabetes mellitus without complications; F41.9 Anxiety disorder, unspecified; F32.A Depression, unspecified; E03.9 Hypothyroidism, unspecified; M19.011 Primary osteoarthritis, right shoulder; M17.11 Unilateral primary osteoarthritis, right knee; M54.2 Cervicalgia; Z13.31 Encounter for screening for depression; Z13.30 Encounter for screening examination for mental health and behavioral disorders, unspecified
CPT/HCPCS: 36415; 83036; 84443; 96127; 99212

== ENCOUNTER 2024-11-25 13:34 | Outpatient (AMB) | payer OTHER, SELFPAY ==
--- NOTE | 2024-11-25 13:40 | A.OFFPC_ITS ---
Vital Signs 11/25/24 13:49 Height 5 ft 6 in Weight 271 lb 8 oz BMI 43.8 BP 110/60 Blood Pressure Location Rt brachial Position Sitting Respiration 16 Pulse 83 Pulse Source Pulse Oximeter Temp 97.9 F Temp Source Oral Pulse Oximetry (%) 95 Oxygen Delivery Method Room Air Intake Visit Reasons: 3 mos HTN, DM, anxiety, depression Intake Note: patient here for 3 month follow up on HTN, DM anxiety and depression Video Coordinator Required: No Is last menstrual period known: No Post menopausal: No Patient : No Allergies acetaminophen (From Tylenol) Allergy (Mild, Verified 11/25/24 13:57) Hives Medication List - Last Reconciled 11/25/24 by Jaime Bach CNP betamethasone valerate 0.1% 1 appl topical BID PRN cyclobenzaprine 5 mg PO BID PRN hydrochlorothiazide 25 mg PO DAILY 90 days hydroxyzine HCl 25 mg PO BID PRN ibuprofen 800 mg PO Q12H PRN levothyroxine 25 mcg PO DAILY lidocaine 5% 1 patch topical DAILY lisinopril 40 mg PO DAILY 90 days metformin 500 mg PO DAILY 90 days nystatin 1 appl topical BID Tobacco use date assessed: 11/25/24 Dental Screening Dental Screen Date: 11/25/24 (patient has dentures) Did you have a dental visit in the last 12 months?: No Did you have a dental problem in the last 6 months where you did not have access to dental care?: No Was dental information given to patient?: No HPI HPI Comments History of Present Illness Details 59-year-old female presents for hyperten jossy, diabetes, anxiety, and depression follow-up. She admits to taking her medications as prescribed without adverse reactions. She notes that she has been making healthy lifestyle changes. She reports worsening anxiety and depressive symptoms which she attributes to chronic pain to her right shoulder and knees. She is unhappy that she is not physically able to do things that she was able to do in the past, including physical exercise and playing with her grandkids. She notes that her current pain regimen is effective. She continues to follow [facility]. She sees a therapist from [facility] every other week. She is willing to start an antidepressant medication. Requests an order for a shower chair. [facility] Medical History (Updated 08/23/24 @ 16:55 by Liv Wu, ANP-C) Hypotension Elevated fasting glucose Encounter for routine adult physical exam with abnormal findings Laboratory tests ordered as part of a complete physical exam (CPE) Normal physical examination, routine Right knee pain Bilateral leg pain Right shoulder pain Neck pain Vaccine counseling Candidiasis Breast cancer screening by mammogram Pap smear for cervical cancer screening Encounter for screening colonoscopy Colon cancer screening Prediabetes History of high blood pressure No pertinent past medical history Surgical History History of surgery Hx of oral surgery Hx of knee surgery History of back surgery Hx of breast surgery Family History Mother Lung cancer Colon cancer High blood pressure Social History Housing: Apartment Alcohol intake: never Patient Tobacco Use Status: Former Tobacco user Tobacco use type: Cigarette e-Cigarette/Vaping Use: Currently Using Second Hand Smoke Exposure: No service: No Current occupational status: disabled Cognitive needs: No Hearing needs: No Vision needs: Yes Questionnaire PHQ-9 Over the last 2 weeks, how often have you been bothered by any of the following problems? 1. Little interest or pleasure in doing things: nearly every day 2. Feeling down, depressed, or hopeless: nearly every day 3. Trouble falling or staying asleep, or sleeping too much: more than half the days 4. Feeling tired or having little energy: more than half the days 5. Poor appetite or overeating: more than half the days 6. Feeling bad about yourself - or that you are a failure or have let yourself or your family down: several days 7. Trouble concentrating on things, such as reading the newspaper or watching television: nearly every day 8. Moving or speaking so slowly that other people could have noticed. Or the opp osite - being so fidgety or restless that you have been moving around a lot more than usual: more than half the days 9. Thoughts that you would be better off or of hurting yourself in some way: not at all Total score: 18 Depression Screening Interpretation: Positive Depression Screening Follow-up: Existing condition and New Medication prescribed Depression Screening Done: Yes 66948 - PHQ-9 Billing: Yes Source: Developed by Drs. Pan LMeron Antunez Kurt Kroenke and colleagues, with an educational tamera from [employer]. Thrive Questionnaire Date Thrive assessed: 04/15/24 I am a: Patient What is your living situation today?: I have a steady place to live Within the past 12 months, did the food you bought not last and you didn't have the money to get more?: Never true Within the past 12 months, did you worry whether your food would run out before you got money to buy more?: Never true Do you have trouble paying for medicines?: No Do you have trouble getting transportation to medical appointments?: No Do you have trouble paying your heating and electricity bill?: No Do you have trouble taking care of your child, family member or friend?: No Do you have trouble with day-to-day activities such as bathing, preparing meals, shopping, managing finances, etc.?: Yes Are you currently unemployed and looking for a job?: No Are you interested in more education?: No Please select the resources that you would like help with: None Currently or been in a relationship where the following occur: No concerns reported THRIVE Score: 0 RANJIT-7 AMB Questionnaire RANJIT-7 Date RANJIT - 7 assessed: 11/25/24 Feeling nervous, anxious, or on edge: 3 = Nearly every day Not being able to stop or control worryin = Nearly every day Worrying too much about different things: 3 = Nearly every day Trouble relaxin = Nearly every day Being so restless that it is hard to sit still: 2 = More than half the days Becoming easily annoyed or irritable: 3 = Nearly every day Feeling afraid as if something awful might happen: 2 = More than half the days Total RANJIT-7 score (0-4 normal; 5-9 mild; 10-14 moderate; 15-21 severe): 19 Source: Developed by Drs. Pan Bunch, Aldair Malin and colleagues, with an educational tamera from [employer]. RANJIT-7 Assessment Billing RANJIT-7 Assessment Tool: RANJIT-7 Assessment 43528 Review of Systems Const Details: Const Denies chills, Denies fatigue, Denies fever(s), Denies headache(s) and Denies weakness ENT Denies dizziness and Denies headache(s) Card Denies chest pain, Denies lightheadedness, Denies dyspnea and Denies other (Palpitations) Resp Denies cough, Denies dyspnea, Denies wheezing and Denies other ( shortness of breath) GI Denies abdominal pain, Denies melena, Denies hematochezia, Denies change in bowel habits, Denies dyspepsia and Denies nausea Denies hematuria and Denies dysuria Musc Reports as per HPI Skin/Breast Denies rash, Denies unusual bruising and Denies wounds Neuro Denies abnormal gait, Denies dizziness, Denies headache(s), Denies memory loss, Denies numbness, Denies Sensory deficit (Neuro), Denies tingling and Denies weakness Psych Reports anxiety, reports depression, Denies memory loss Endo Denies cold intolerance, Denies fatigue, Denies heat intolerance, Denies polydipsia and Denies polyuria Aller/Immun Denies wheezing Physical exam (Primary Care) Vital Signs: Last Vital Signs Temp 97.9 F 11/25/24 13:49 Pulse 83 11/25/24 13:49 Resp 16 11/25/24 13:49 BP 110/60 11/25/24 13:49 Pulse Ox 95 11/25/24 13:49 Oxygen Delivery Method Room Air 11/25/24 13:49 BMI result Body Mass Index 43.8 Tobacco/Smoking Status: Tobacco use Status Tobacco use date assessed 11/25/24 11/25/24 13:52 Patient Tobacco Use Status Former Tobacco user 11/25/24 13:42 Tobacco use type Cigarette 11/25/24 13:42 e-Cigarette/Vaping Use Currently Using 11/25/24 13:42 PHQ-9: PHQ-9 Score PHQ-9: Total score 18 11/25/24 14:51 Depression Screening Interpretation: Positive Depression Screening Follow-up: Existing condition and New Medication prescribed Thrive Assessment: Date of Thrive Assessment Date Thrive assessed 04/15/24 11/25/24 13:42 Currently or been in a relationship where the following occur: No concerns reported Const Other: General: no acute distress and well developed Nutritional Appearance: well nourished Orientation/consciousness: patient oriented x3 HENMT Head: Yes normocephalic and Yes atraumatic Eyes General: appearance normal, both eyes and all related structures Pupils: Equal, round and reactive pupils present EOM: EOMs intact bilaterally Resp Effort & Inspection: normal respiratory effort Auscultation: clear to auscultation bilaterally Cardio Rate: regular rate Rhythm: regular rhythm Heart sounds: S1 normal heart sound present, S2 normal heart sound present, no gallops, no murmurs and no rubs GI Palpation (GI): No Abdominal aortic bruit present, Soft to palpation, nontender, No hepatosplenomegaly present and No Rebound tenderness present Auscultation: normal bowel sounds General: Yes no CVA tenderness Back/Spine/Pelvis Back: no CVA tenderness Cervical Spine: cervical ROM normal and No Cervical spine tenderness Thoracic/Lumbar Spine: thoraco-lumbar ROM normal, No pain with thoraco-lumbar RO M, No thoracic spinal tenderness and No lumbar spinal tenderness Extrem General: Yes normal to inspection, No edema and No calf tenderness Skin General: warm and dry. Normal skin color. Normal skin turgor Neuro General: patient oriented x3, gait normal and no focal neuro deficit Cranial nerves: Yes Equal, round and reactive pupils present Cognition (Neuro): normal cognition Gait exam (Neuro): Normal gait present Sensory Exam: No Sensory deficit (Neuro) Psych Appearance: grossly normal Affect: Constricted Attitude: cooperative Thought process: Normal thought process present Results AMB Hemoglobin A1c AMB Hemoglobin A1c 7.1 % Last Edit by Halima Elkins MA on 11/25/24 14:05 Results Reviewed Results Reviewed: Laboratory Last Values Hgb A1c (Clinic) 7.1 % (4.0-6.0) H 11/25/24 13:59 Coding Level of Care Code Est Pt Level 4 (95799) Diagnoses Essential hypertension I10 Type 2 diabetes mellitus E11.9 Anxiety and depression F41.9; F32.A Additional Codes RANJIT-7 Assessment Billing - RANJIT-7 Assessment Tool: RANJIT-7 Assessment 28031 ([id number]) PHQ-9 - 08743 - PHQ-9 Billing: Yes ([id number]) Assessment & Plan Assessment & Plan (1) Essential hypertension: Code(s): I10 - Essential (primary) hypertension Category: Medical Plan: Blood pressure is 110/60, within goal of less than 130/80. Continue current treatment regimen. Low-sodium diet encouraged. Follow-up in 3 months or sooner with symptoms or concerns. Verbalized understanding and agreed with the plan. (2) Type 2 diabetes mellitus: Code(s): E11.9 - Type 2 diabetes mellitus without complications Category: Medical Plan: A1c today is 7.1%, slightly above goal of less than 7.0%. Previous A1c was 6.4%. Will increase metformin to 500 mg twice daily; advised to take as prescribed. ADA diet and routine exercise encouraged. Will recheck A1c in 3 months. Verbalized understanding and agreed with the plan. (3) Anxiety and depression: Code(s): F41.9 - Anxiety disorder, unspecified; F32.A - Depression, unspecified Category: Medical Plan: She reports worsening anxiety and depressive symptoms which she attributes to chronic pain to her right shoulder and knees. She is unhappy that she is not physically able to do things that she was able to do in the past, including physical exercise and playing with her grandkids. She notes that her current pain regimen is effective. She continues to follow [facility]. She sees a therapist from [facility] every other week. She is willing to start an antidepressant medication. PHQ-9 and RANJIT-7 scores revealed moderately severe depression and severe anxiety respectively. Will start bupropion 150 mg daily in the morning; advised to take as prescribed. Instructed on the risks, benefits, and potential adverse reactions of the medication. Hydroxyzine increased to 25 mg 3 times daily as needed for anxiety. Routine exercise encouraged. Follow-up in 2 weeks or sooner with worsening or new symptoms. Verbalized understanding and agreed with the plan. 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
[2024-11-25 13:49] VITALS: BP 110/60; PULSE 83; RESP 16; TEMP 36.6; O2SAT 95; BMI 43.8
== END 2024-11-25 14:19 | disposition home or self-care (01) ==
LOC: HO.HMCFM 13:35
PROVIDERS: PCP Nurse Practitioner Family; Visit Provider Nurse Practitioner Family
DX: I10 Essential (primary) hypertension (principal); E11.9 Type 2 diabetes mellitus without complications; F41.9 Anxiety disorder, unspecified; F32.A Depression, unspecified; Z13.9 Encounter for screening, unspecified

== ENCOUNTER → 2024-11-25 13:34 | Outpatient (BNVA) | payer OTHER, SELFPAY | PROVIDERS: PCP Nurse Practitioner Family; Visit Provider Nurse Practitioner Family | DX: I10 Essential (primary) hypertension (principal); F41.9 Anxiety disorder, unspecified; E11.9 Type 2 diabetes mellitus without complications; F32.A Depression, unspecified; G89.29 Other chronic pain; M17.11 Unilateral primary osteoarthritis, right knee; M17.12 Unilateral primary osteoarthritis, left knee; M19.011 Primary osteoarthritis, right shoulder; M54.2 Cervicalgia; M96.1 Postlaminectomy syndrome, not elsewhere classified | CPT/HCPCS: 83036; 96127; 99212 ==

== ENCOUNTER 2024-12-02 11:22 | Outpatient (REF) | payer OTHER, SELFPAY | END 2024-12-02 11:23 | disposition home or self-care (01) | LOC: HO.HOSX 11:22 | PROVIDERS: Visit Provider Physician Assistant | DX: Z13.89 Encounter for screening for other disorder (principal) ==

== ENCOUNTER 2024-12-16 11:12 | Outpatient (REF) | payer OTHER, SELFPAY | END 2024-12-16 11:13 | disposition home or self-care (01) | LOC: HO.HOSX 11:12 | PROVIDERS: Visit Provider Physician Assistant | DX: Z13.89 Encounter for screening for other disorder (principal) ==

== ENCOUNTER 2025-01-19 09:14 | Outpatient (REF) | payer OTHER, SELFPAY ==
--- NOTE | ~2025-01-19 | XR_ITS ---
EXAMINATION: XR KNEE, LEFT CLINICAL INFORMATION: M25.569 - Pain in unspecified knee COMPARISON: 11/11/2022 TECHNIQUE: Three views of the left knee. FINDINGS: There is mild to moderate narrowing of the medial compartment, similar to the prior. There are tricompartmental marginal osteophytes that are minimally increased from the prior. There is no joint effusion. XR/XR knee LT 3V IMPRESSION: Moderate left knee osteoarthritis is slightly progressed since the prior. Electronically signed by: Jayce Clements MD 01/19/2025 02:29 PM [facility]AR
--- NOTE | ~2025-01-19 | XR_ITS ---
EXAMINATION: XR KNEE, RIGHT CLINICAL INFORMATION: M25.569 - Pain in unspecified knee COMPARISON: 11/11/2022 TECHNIQUE: Three views of the right knee. (AP view within the left knee x-ray) FINDINGS: There is severe narrowing of the medial joint space with subchondral sclerosis. There is minimal narrowing of the lateral compartment. There is mild subluxation of femur in the joint. There are tricompartmental marginal osteophytes that are slightly increased from the prior. There is no joint effusion. XR/XR knee RT 3V IMPRESSION: Severe osteoarthritis is slightly progressed since the prior. Electronically signed by: Jayce Clements MD 01/19/2025 02:26 PM EST RP
== END 2025-01-19 09:15 | disposition home or self-care (01) ==
LOC: HO.HOSX 09:14
PROVIDERS: Visit Provider Physician Assistant
DX: M17.0 Bilateral primary osteoarthritis of knee (principal); M54.50 Low back pain, unspecified
CPT/HCPCS: 73562; 99212

== ENCOUNTER 2025-01-19 13:35 | Outpatient (AMB) | payer OTHER, SELFPAY ==
--- NOTE | 2025-01-19 13:42 | MHC.OFFVIS ---
Intake Visit Reasons: OV-B/L knee pain-right knee worse Intake Note: Siva is a 59 year old female who presents today for a follow up of her bilateral knee osteoarthritis. At her last visit she was given 2 playmaker knee braces. Patient reports her right knee is worse and the knee brace bushes on her scar. She mentions that her pain is getting worse. Patient states that she had a velcro wrap that provides her relief for her right knee. Allergies acetaminophen (From Tylenol) Allergy (Mild, Verified 11/25/24 13:57) Hives HPI HPI OV-B/L knee pain-right knee worse: Details: Ms. Chiki nance is a 59-year-old female who presents to the office today for follow up of bilateral chronic knee pain due to osteoarthritis. Patient was provided with bilateral knee braces at her last appointment but states that the right knee brace rubs up against a prior scar that is hypersensitive causing excess pain. Unfortunately, the patient is not a surgical candidate due to poor compliance in the past as well as a BMI of 43.8. [facility] Medical History (Updated 01/19/25 @ 14:09 by Radha Parks PA-C) Hypotension Elevated fasting glucose Encounter for routine adult physical exam with abnormal findings Laboratory tests ordered as part of a complete physical exam (CPE) Normal physical examination, routine Right knee pain Bilateral leg pain Right shoulder pain Neck pain Vaccine counseling Candidiasis Breast cancer screening by mammogram Pap smear for cervical cancer screening Encounter for screening colonoscopy Colon cancer screening Prediabetes History of high blood pressure No pertinent past medical history Surgical History History of surgery Hx of oral surgery Hx of knee surgery History of back surgery Hx of breast surgery Family History Mother Lung cancer Colon cancer High blood pressure Social History Housing: Apartment Alcohol intake: never Patient Tobacco Use Status: Former Tobacco user Tobacco use type: Cigarette e-Cigarette/Vaping Use: Currently Using Second Hand Smoke Exposure: No service: No Current occupational status: disabled Cognitive needs: No Hearing needs: No Vision needs: Yes Review of Systems Const All systems reviewed & are unremarkable except as noted in HPI and below Physical Exam Const General: cooperative, healthy appearing and no acute distress Resp Effort & Inspection: normal respiratory effort and able to speak in complete sentences Extrem Other: Bilateral knees: Normal to inspection. No ecchymosis, erythema, or joint effusion. No tenderness to palpation along the medial or lateral joint lines. Full knee extension and flexion. Crepitus felt with ROM. NVI. Psych Appearance: grossly normal Mental Status: mental status grossly normal Attitude: cooperative Assessment & Plan Assessment & Plan (1) Osteoarthritis of right knee: Code(s): M17.11 - Unilateral primary osteoarthritis, right knee Category: Medical Qualifiers: Osteoarthritis type: unspecified Qualified Code(s): M17.11 - Unilateral primary osteoarthritis, right knee (2) Osteoarthritis of left knee: Code(s): M17.12 - Unilateral primary osteoarthritis, left knee Category: Medical Qualifiers: Osteoarthritis type: unspecified Qualified Code(s): M17.12 - Unilateral primary osteoarthritis, left knee Plan Ms. Chiki nance is a 59-year-old female who presents to the office today for follow up of bilateral chronic knee pain due to osteoarthritis. Patient was provided with bilateral knee braces at her last appointment but states that the right knee brace rubs up against a prior scar that is hypersensitive causing excess pain. Unfortunately, the patient is not a surgical candidate due to poor compliance in the past as well as a BMI of 43.8. While in the office today, I again discussed that with the patient that she is not a surgical candidate at this time. I have recommended a referral to pain management in which the patient is amenable to attend. She continues to refuse any cortisone injections at this time. She may continue using her knee braces as needed. Follow up with Orthopedics will be PRN, sooner if needed. X-rays of the bilateral knees which were obtained while in the office today and were reviewed by me, Radha Parks PA-C, revealed osteoarthritis. Orders: Orders XR knee RT 3V Today M25.569 - Pain in unspecified knee XR knee LT 3V Today M25.569 - Pain in unspecified knee Referrals Pain Management Referral M17.11 - Unilateral primary osteoarthritis, right knee, M17.12 - Unilateral primary osteoarthritis, left knee, M54.50 - Low back pain, unspecified Coding Level of Care Code Est Pt Level 3 (66528) Diagnoses Osteoarthritis of right knee, unspecified osteoarthritis type M17.11 Osteoarthritis type: unspecified Osteoarthritis of left knee, unspecified osteoarthritis type M17.12 Osteoarthritis type: unspecified
== END 2025-01-19 14:18 | disposition home or self-care (01) ==
LOC: HO.HOS 13:36
PROVIDERS: PCP Nurse Practitioner Family; Visit Provider Physician Assistant
DX: M17.0 Bilateral primary osteoarthritis of knee (principal)
CPT/HCPCS: 99213

== ENCOUNTER → 2025-01-19 13:38 | Outpatient (BNV) | payer OTHER, SELFPAY | PROVIDERS: Visit Provider Radiology Diagnostic Radiology | DX: M17.0 Bilateral primary osteoarthritis of knee (principal) | CPT/HCPCS: 73562 ==